=== PATIENT | male | born 1965 | race Caucasian/White ===

== ENCOUNTER 2019-06-28 07:41 | Day surgery (SDC) | payer BC ==
--- NOTE | 2019-04-16 09:56 | HP ---
DATE OF SURGERY: 04/19/2019 ADMISSION DIAGNOSIS: Follow up of positive colonoscopy with polyps. ANTICIPATED PROCEDURE: Colonoscopy for follow up of polyps. HISTORY OF PRESENT ILLNESS: The patient had a colonoscopy ten years ago with polyps, presents for colonoscopy. PAST MEDICAL HISTORY: ALLERGIES: KEFLEX. MEDICATIONS: Crestor, Kenalog. PAST SURGICAL HISTORY: Hernia surgery. SOCIAL HISTORY: Negative. FAMILY HISTORY: Negative. REVIEW OF SYSTEMS: Elevated cholesterol controlled. Hypertension, controlled. PULMONARY: Negative. GI: Negative. PHYSICAL EXAMINATION: VITAL SIGNS: Normal. CHEST: Clear. COR: Regular. ABDOMEN: Satisfactory. IMPRESSION/PLAN: Colonoscopy for follow up of polyps.
--- NOTE | 2019-06-26 14:29 | HP ---
DATE OF SURGERY: 06/28/2019 ANTICIPATED PROCEDURE: Colonoscopy. HISTORY OF PRESENT ILLNESS: A 54 year-old with history of diverticulitis. No colonoscopy. No family history. No bowel symptoms now. Apparently he has had polyps in the past. PAST MEDICAL HISTORY: ALLERGIES: KEFLEX. MEDICATIONS: Crestor, Atenolol. PAST SURGICAL HISTORY: Knee surgery. SOCIAL HISTORY: Negative. FAMILY HISTORY: Negative. REVIEW OF SYSTEMS: Heart trouble. Prostate. PHYSICAL EXAMINATION: VITAL SIGNS: Normal. CHEST: Clear. COR: Regular. ABDOMEN: Satisfactory. IMPRESSION: A 54 year-old with history of diverticulosis and polyps. PLAN: Colonoscopy.
[2019-06-28] MEDS ORDERED: Lactated Ringers 1,000 ML IV ONE (08:16)
[2019-06-28] MEDS ORDERED: Lactated Ringers 1,000 ML IV SCH (08:30)
[2019-06-28] MEDS ORDERED: DIPRIVAN 200 MG/20 ML IV ONE ×2 (10:07→10:22)
[2019-06-28 11:16] VITALS: BP 104/79; PULSE 52; O2SAT 99
--- NOTE | 2019-06-28 14:04 | OP ---
NOTE: This operative report was dictated and transcribed at [facility] on 06/28/2019. SURGERY DATE/TIME: 06/28/2019 1010 PREOPERATIVE DIAGNOSIS: Follow-up polyps. POSTOPERATIVE DIAGNOSES: 1) Mild diverticulosis, sigmoid. 2) Upper rectal polyp, 8 mm. PROCEDURE: Colonoscopy complete to cecum with hot polypectomy x1. SURGEON: Erik Landa M.D. ANESTHETIC: MAC. COMPLICATIONS: None. CONDITION: Stable. INDICATION FOR PROCEDURE: Patient requiring evaluation. She had 7 or 8 polyps in the past. DESCRIPTION OF PROCEDURE: He was taken to endoscopy, left lateral decubitus position. Scope introduced. Anorectal examination satisfactory. Scope advanced to the base of the cecum. An appendicolith was delivered from the appendix. The appendiceal orifice was normal. The cecum was normal. Ascending, hepatic, transverse, splenic, descending, sigmoid. Mild diverticulosis, sigmoid. Rectum, one 8 mm polyp taken with the hot biopsy forceps. Anus satisfactory. Scope removed. Follow-up 3 years. Findings discussed with the family in waiting room.
== END 2019-06-28 11:29 | disposition home or self-care (01) ==
LOC: SDC 07:41
PROVIDERS: ATTEND Surgery
DX: K57.30 Diverticulosis of large intestine without perforation or abscess without bleeding (principal); K62.1 Rectal polyp; Z86.010 Personal history of colon polyps; I10 Essential (primary) hypertension; E78.00 Pure hypercholesterolemia, unspecified
CPT/HCPCS: 88305; J2704

== ENCOUNTER 2023-04-19 17:53 | Emergency (ER) | payer BC ==
[2023-04-19 18:48] VITALS: TEMP 97.8
[2023-04-19] MEDS ORDERED: Sodium Chloride 0.9% 1000 ML 1,000 ML IV STA ×2 (19:00→20:42)
--- NOTE | 2023-04-19 19:04 | ERPHSYRPT ---
- History of Present Illness Time Seen by Provider: 04/19/23 18:30 Source: patient Exam Limitations: no limitations Patient Subjective Stated Complaint: pt states that he has had episodes of diarrhea. pt states he was on the toliet and passed out Triage Nursing Assessment: pt ambulated into the er; pt is axo x4; c/o diarrhea; pt denies N/V; pt denies abd pain; active bowel sounds in all quads; mucus membranes are pink and moist; no respiratory distress present; laceration 2 cm to left forehead; vital wnl; skin PDW Physician History: Patient is a 57-year-old male presents to our ED as a referral from his nurse practitioner. Patient states he has had significant diarrhea. Patient had a syncopal episode today while on the toilet. Patient hit his head. Patient refused a CT head. Patient agreed to getting his labs checked and hydration therapy. Patient currently asymptomatic. Patient denies headache. No nausea no vomiting no neck pain. Cervical spine cleared clinically. No associated chest pain or shortness of breath. Patient states he was sent to our ED for rehydration as he is on metformin and nurse practitioner was concerned with lactic acidosis. Significant other at bedside. They voiced no other complaints or concerns at this time. Portions of this note were created with voice recognition technology. There may be grammatical, spelling, punctuation or sound alike errors Timing/Duration: today Severity: moderate Modifying Factors: Improves With: nothing Associated Symptoms: denies symptoms Allergies/Adverse Reactions: cephalexin [From Keflex] Adverse Reaction (Intermediate, Verified 04/19/23 18:31) Hives Home Medications: Atenolol 50 mg [Tenormin 50 mg] 50 mg PO DAILY 04/06/19 [History] Rosuvastatin Calcium [Crestor] 10 mg PO DAILY 04/06/19 [History] Lisinopril 10 mg [Zestril 10 MG] 10 mg PO DAILY 04/19/23 [History] Metformin HCl 500 mg [Glucophage 500 MG] 1,000 mg PO DAILY 04/19/23 [History] Hx Tetanus, Diphtheria Vaccination/Date Given: Yes Hx Influenza Vaccination/Date Given: No Hx Pneumococcal Vaccination/Date Given: No Immunizations Up to Date: No Travel Risk - International Travel Have you traveled outside of the country in past 3 weeks: No - Coronavirus Screening Are you exhibiting any of the following symptoms?: Yes Symptoms: Vomiting/Diarrhea Close contact with a COVID-19 positive Pt in past 14-21 Days: No - Vaccine Status Have you recieved a Covid-19 vaccination: Yes 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: [employer] - Review of Systems Constitutional: No Symptoms, No Fever, No Chills Eyes: No Symptoms Ears, Nose, & Throat: No Symptoms Respiratory: No Symptoms, No Cough, No Dyspnea Cardiac: No Symptoms, No Chest Pain, No Edema, No Syncope Abdominal/Gastrointestinal: No Symptoms, No Abdominal Pain, No Nausea, No Vomiting, No Diarrhea Genitourinary Symptoms: No Symptoms, No Dysuria Musculoskeletal: No Symptoms, No Back Pain, No Neck Pain Skin: No Symptoms, No Rash Neurological: No Symptoms, No Dizziness, No Focal Weakness, No Sensory Changes Psychological: No Symptoms Endocrine: No Symptoms Hematologic/Lymphatic: No Symptoms Immunological/Allergic: No Symptoms All Other Systems: Reviewed and Negative - Past Medical History Pertinent Past Medical History: Yes Neurological History: No Pertinent History ENT History: No Pertinent History Cardiac History: High Cholesterol, Hypertension Respiratory History: No Pertinent History Endocrine Medical History: Diabetes Type II Musculoskeletal History: No Pertinent History GI Medical History: No Pertinent History History: No Pertinent History Psycho-Social History: No Pertinent History Male Reproductive Disorders: No Pertinent History - Past Surgical History Past Surgical History: Yes Neuro Surgical History: No Pertinent History Cardiac: No Pertinent History Respiratory: No Pertinent History Gastrointestinal: Hernia Repair Genitourinary: No Pertinent History Musculoskeletal: Orthopedic Surgery Male Surgical History: No Pertinent History Other Surgical History: hernia 2012, Fx ankle w/pinning 2003 - Social History Smoking Status: Never smoker Exposure to second hand smoke: No Drug Use: none Patient Lives Alone: No - Nursing Vital Signs Nursing Vital Signs: Initial Vital Signs Temperature 97.8 F 04/19/23 17:54 Pulse Rate 70 04/19/23 17:54 Respiratory Rate 18 04/19/23 17:54 Blood Pressure 118/70 04/19/23 17:54 O2 Sat by Pulse Oximetry 96 04/19/23 17:54 Pain Scale Pain Intensity 0 - Physical Exam General Appearance: no apparent distress, alert, other (Contusion to left forehead. Neurologic exam normal) Eye Exam: PERRL/EOMI, eyes nml inspection Ears, Nose, Throat Exam: normal ENT inspection, TMs normal, pharynx normal, moist mucous membranes Neck Exam: normal inspection, non-tender, supple, full range of motion Respiratory Exam: normal breath sounds, lungs clear, No respiratory distress Cardiovascular Exam: regular rate/rhythm, normal heart sounds, normal peripheral pulses Gastrointestinal/Abdomen Exam: soft, normal bowel sounds, No tenderness, No mass Back Exam: normal inspection, normal range of motion, No CVA tenderness, No vertebral tenderness Extremity Exam: normal inspection, normal range of motion, pelvis stable Neurologic Exam: alert, 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, cooperative, normal mood/affect, nml cerebellar function, nml station & gait, sensation nml, other (Patient observed ambulating from the restroom. Normal steady gait observed), No motor deficits Skin Exam: normal color, warm, dry, No rash Lymphatic Exam: No adenopathy SpO2 Interpretation: normal SpO2: 96 O2 Delivery: Room Air - Course Nursing assessment & vital signs reviewed: Yes EKG Interpreted by Me: RATE (65), Sinus Rhythm, Left Shelburn Deviation, NORMAL INTERVALS Ordered Tests: Active Orders 24 hr Category Date Time Status IV Insertion STAT Care 04/19/23 19:00 Active Pulse Oximetry (ED) STAT Care 04/19/23 19:00 Active BLOOD CULTURE Stat Lab 04/19/23 20:08 Received CBC W DIFF Stat Lab 04/19/23 18:30 Completed CBC W DIFF Stat Lab 04/19/23 22:10 Completed CMP Stat Lab 04/19/23 18:30 Completed CMP Stat Lab 04/19/23 22:10 Completed CULTURE,URINE Stat Lab 04/19/23 19:38 Received TROPONIN Q4H Lab 04/19/23 18:30 Completed TROPONIN Q4H Lab 04/19/23 22:10 Completed TROPONIN Q4H Lab 04/20/23 03:00 Ordered UA W/RFX UR CULTURE Stat Lab 04/19/23 19:38 Completed Medication Summary Discontinued Medications Generic Name Dose Route Start Last Admin Trade Name Freq PRN Reason Stop Dose Admin Sodium Chloride 1,000 mls @ 999 mls/hr 04/19/23 19:00 04/19/23 20:09 Sodium Chloride 0.9% 1000 Ml IV 04/19/23 20:00 Infused .Q1H1M STA Infusion Sodium Chloride Confirm 04/19/23 19:05 Sodium Chloride 0.9% 1000 Ml Administered 04/19/23 19:06 Dose 1,000 mls @ ud .ROUTE .STK-MED ONE Sodium Chloride 1,000 mls @ 999 mls/hr 04/19/23 20:42 04/19/23 21:56 Sodium Chloride 0.9% 1000 Ml IV 04/19/23 21:42 Infused .Q1H1M STA Infusion Sodium Chloride Confirm 04/19/23 20:42 Sodium Chloride 0.9% 1000 Ml Administered 04/19/23 20:43 Dose 1,000 mls @ ud .ROUTE .STK-MED ONE Lab/Rad Data: Laboratory Result Diagrams 04/19/23 22:10 04/19/23 22:10 Laboratory Results 04/19/23 04/19/23 04/19/23 Range/Units 22:10 22:10 22:10 WBC 16.5 H (4.0-10.5) x10^3/uL RBC 5.46 (4.1-5.6) x10^6/uL Hgb 16.6 (12.5-18.0) g/dL Hct 51.6 H (42-50) % MCV 94.5 (78-100) fL MCH 30.4 (26-32) pg MCHC 32.2 (32-36) g/dL RDW 13.3 (11.5-14.0) % Plt Count 338 (150-450) x10^3/uL MPV 9.6 (7.5-11.0) fL Gran % 72.3 H (36.0-66.0) % Immature Gran % (Auto) 0.7 H (0.00-0.4) % Nucleat RBC Rel Count 0.0 (0.00-0.1) % Eos # (Auto) 0.02 (0-0.5) x10^3/uL Immature Gran # (Auto) 0.11 H (0.00-0.03) x10^3u/L Absolute Lymphs (auto) 3.03 (1.0-4.6) x10^3/uL Absolute Monos (auto) 1.34 H (0.0-1.3) x10^3/uL Absolute Nucleated RBC 0.00 (0.00-0.01) x10^3u/L Lymphocytes % 18.4 L (24.0-44.0) % Monocytes % 8.1 (0.0-12.0) % Eosinophils % 0.1 (0.00-5.0) % Basophils % 0.4 (0.0-0.4) % Absolute Granulocytes 11.89 H (1.4-6.9) x10^3/uL Basophils # 0.06 (0-0.4) x10^3/uL Sodium 133 L (137-145) mmol/L Potassium 4.9 (3.5-5.1) mmol/L Chloride 102 (98-107) mmol/L Carbon Dioxide 19 L (22-30) mmol/L Anion Gap 16.8 H (5-15) MEQ/L BUN 20 (9-20) mg/dL Creatinine 1.39 H (0.66-1.25) mg/dL Estimated GFR 58.8 ML/MIN Glucose 121 H (74-106) mg/dL Calcium 8.3 L (8.4-10.2) mg/dL Total Bilirubin 1.20 (0.2-1.3) mg/dL AST 22 (17-59) U/L ALT 24 (0-50) U/L Alkaline Phosphatase 61 (38-126) U/L Troponin I < 0.012 (0.000-0.034) ng/mL Serum Total Protein 6.8 (6.3-8.2) g/dL Albumin 4.1 (3.5-5.0) g/dL Urine Color (Yellow) Urine Appearance (Clear) Urine pH (4.6-8.0) Ur Specific Kellogg (1.005-1.030) Urine Protein (Negative) Urine Glucose (UA) (Negative) mg/dL Urine Ketones (Negative) Urine Blood (Negative) Urine Nitrite (Negative) Urine Bilirubin (Negative) Urine Urobilinogen (0.2) mg/dL Ur Leukocyte Esterase (Negative) U Hyaline Cast (Auto) (0-2) /LPF Urine Microscopic RBC (0-5) /HPF Urine Microscopic WBC (0-5) /HPF Ur Epithelial Cells (None Seen) /HPF Urine Bacteria (None Seen) /HPF Urine Culture Reflexed (NO) Slides for Path Review 04/19/23 04/19/23 04/19/23 Range/Units 19:38 18:30 18:30 WBC 20.3 H (4.0-10.5) x10^3/uL RBC 5.96 H (4.1-5.6) x10^6/uL Hgb 18.2 H (12.5-18.0) g/dL Hct 54.5 H (42-50) % MCV 91.4 (78-100) fL MCH 30.5 (26-32) pg MCHC 33.4 (32-36) g/dL RDW 13.2 (11.5-14.0) % Plt Count 438 (150-450) x10^3/uL MPV 9.9 (7.5-11.0) fL Gran % 79.8 H (36.0-66.0) % Immature Gran % (Auto) 0.8 H (0.00-0.4) % Nucleat RBC Rel Count 0.0 (0.00-0.1) % Eos # (Auto) 0.01 (0-0.5) x10^3/uL Immature Gran # (Auto) 0.17 H (0.00-0.03) x10^3u/L Absolute Lymphs (auto) 1.96 (1.0-4.6) x10^3/uL Absolute Monos (auto) 1.91 H (0.0-1.3) x10^3/uL Absolute Nucleated RBC 0.00 (0.00-0.01) x10^3u/L Lymphocytes % 9.7 L (24.0-44.0) % Monocytes % 9.4 (0.0-12.0) % Eosinophils % 0.0 (0.00-5.0) % Basophils % 0.3 (0.0-0.4) % Absolute Granulocytes 16.17 H (1.4-6.9) x10^3/uL Basophils # 0.06 (0-0.4) x10^3/uL Sodium 135 L (137-145) mmol/L Potassium 4.7 (3.5-5.1) mmol/L Chloride 98 (98-107) mmol/L Carbon Dioxide 25 (22-30) mmol/L Anion Gap 16.6 H (5-15) MEQ/L BUN 20 (9-20) mg/dL Creatinine 1.65 H (0.66-1.25) mg/dL Estimated GFR 47.8 ML/MIN Glucose 159 H (74-106) mg/dL Calcium 9.3 (8.4-10.2) mg/dL Total Bilirubin 1.20 (0.2-1.3) mg/dL AST 29 (17-59) U/L ALT 27 (0-50) U/L Alkaline Phosphatase 69 (38-126) U/L Troponin I < 0.012 (0.000-0.034) ng/mL Serum Total Protein 7.8 (6.3-8.2) g/dL Albumin 4.6 (3.5-5.0) g/dL Urine Color Dark Yellow (Yellow) Urine Appearance Cloudy A (Clear) Urine pH 5.0 (4.6-8.0) Ur Specific Kellogg 1.020 (1.005-1.030) Urine Protein 300 A (Negative) Urine Glucose (UA) Negative (Negative) mg/dL Urine Ketones Trace A (Negative) Urine Blood Negative (Negative) Urine Nitrite Negative (Negative) Urine Bilirubin Small A (Negative) Urine Urobilinogen 1.0 A (0.2) mg/dL Ur Leukocyte Esterase Trace A (Negative) U Hyaline Cast (Auto) >50 A (0-2) /LPF Urine Microscopic RBC 0-2 (0-5) /HPF Urine Microscopic WBC 3-5 (0-5) /HPF Ur Epithelial Cells Few (None Seen) /HPF Urine Bacteria Few A (None Seen) /HPF Urine Culture Reflexed YES (NO) Slides for Path Review YES - Progress Progress: improved Progress Note: Patient declined CT head. Risks and benefits of CT head versus not obtaining CT head after head trauma were discussed. Patient decided to forego the CT head. 04/19/23 19:03 Patient is a 57-year-old male with a recent history of diarrhea presents to our ED with a syncopal episode. Patient has an injury to his left forehead. Patient refused CT head. Risk benefits of the CAT scan versus not obtaining a CAT scan discussed. In spite of risks patient does not want a CAT scan performed today. Patient denies headache or any complaints regarding his head and neck area. Troponin negative x 2. Patient's initial CBC CMP suggested of hemoconcentration. There was an increase increase in creatinine. Proteinuria observed in the urinalysis. Patient received 2 L of normal saline. CBC CMP repeated. There was significant improvement in his white count kidney function. Patient currently is asymptomatic. Patient requesting discharge. Patient understands that he may benefit from additional hydration however he states he will hydrate at home. He will follow-up with his primary care doctor within 48 hours for reevaluation. Patient voices no other complaints or concerns at this time. at bedside. Agree to plan of care. Portions of this note were created with voice recognition technology. There may be grammatical, spelling, punctuation or sound alike errors Complexity problem addressed is moderate, acute complicated No critical care time Complexity of data reviewed and analyzed is moderate. Test ordered test reviewed. Results analyzed and correlated clinically. Risk of complication and or risk of morbidity/mortality patient management is low Vital stable. Time spent to discharge patient is approximately 10 minutes. Plan of care established for shared decision making. No social determinants of health present impede follow-up. Portions of this note were created with voice recognition technology. There may be grammatical, spelling, punctuation or sound alike errors 04/19/23 23:30 Counseled pt/family regarding: lab results, diagnosis, need for follow-up - Departure Departure Disposition: Home Clinical Impression: Dehydration, Syncope and collapse, Head injury, Diarrhea, Proteinuria, Acute re nal injury, Forehead contusion Condition: Stable Critical Care Time: No Referrals: REMBERTO THOMAS NP [Primary Care Provider] - Follow up/PCP as directed Additional Instructions: Discharge/Care Plan YVETTE CHEN was seen on 04/19/23 in the Emergency Room. The patient was counseled regarding Diagnosis,Lab results, Imaging studies, need for follow up and when to return to the Emergency Room. Prescriptions given: Discharge Note I have spoken with the patient and/or caregivers. I have explained the patient's condition, diagnosis and treatment plan based on the information available to me at this time. I have answered the patient's and/or caregiver's questions and a ddressed any concerns. The patient and/or caregivers have as good understanding of the patient's diagnosis, condition and treatment plan as can be expected at this point. The vital signs have been stable. The patient's condition is stable and appropriate for discharge from the emergency department. The patient will pursue further outpatient evaluation with the primary care physician or other designated or consulting physician as outlined in the discharge instructions. The patient and/or caregivers are agreeable to this plan of care and follow-up instructions have been explained in detail. The patient and/or caregivers have received these instruction. The patient/and or caregivers are aware that any significant change in condition or worsening of symptoms should prompt an immediate return to this or the closest emergency department or call 911.
[2023-04-19 19:05] LABS: Absolute Neutrophil Ct (ANC) 16.17 x10^3/uL (1.4-6.9); BASOPHIL % 0.3 % (0.0-0.4); Basophil (Absolute #) 0.06 x10^3/uL (0-0.4); Eosinophil (Absolute #) 0.01 x10^3/uL (0-0.5); Hematocrit 54.5 % (42-50); Hemoglobin 18.2 g/dL (12.5-18.0); IMMATURE GRAN # 0.17 x10^3u/L (0.00-0.03); IMMATURE GRAN % 0.8 % (0.00-0.4); Lymphocyte (Absolute #) 1.96 x10^3/uL (1.0-4.6); Lymphocytes % 9.7 % (24.0-44.0); Mean Cell Volume 91.4 fL (78-100); Mean Corpuscular Hemoglobin 30.5 pg (26-32); Mean Corpuscular Hgb Concent. 33.4 g/dL (32-36); Mean Platelet Volume 9.9 fL (7.5-11.0); Monocyte (Absolute #) 1.91 x10^3/uL (0.0-1.3); Monocytes % 9.4 % (0.0-12.0); Neutrophil % 79.8 % (36.0-66.0); Platelet Count 438 x10^3/uL (150-450); Red Blood Count 5.96 x10^6/uL (4.1-5.6); Red Cell Distribution Width 13.2 % (11.5-14.0); White Blood Count 20.3 x10^3/uL (4.0-10.5)
[2023-04-19] MEDS ORDERED: Sodium Chloride 0.9% 1000 ML 1,000 ML ONE ×2 (19:05→20:42)
[2023-04-19 19:41] LABS: Slide Review 1 YES
[2023-04-19 19:56] LABS: Appearance Cloudy (Clear); Bilirubin Small (Negative); Blood Negative (Negative); Epithelial Cells Few /HPF (None Seen); Glucose, Urine Negative (Negative); Hyaline Casts >50 /LPF (0-2); Ketones Trace (Negative); Leukocyte Esterase Trace (Negative); Nitrite Negative (Negative); Protein,Urine Dip 300 (Negative)
[2023-04-19 20:04] LABS: Bacteria Few /HPF (None Seen); RBC 0-2 /HPF (0-5)
[2023-04-19 20:05] LABS: ADD URINE CULTURE? YES (NO)
[2023-04-19 20:10] LABS: ALBUMIN 4.6 g/dL (3.5-5.0); ALKALINE PHOSPHATASE 69 U/L (38-126); ANION GAP 16.6 MEQ/L (5-15); BLOOD UREA NITROGEN 20 mg/dL (9-20); CHLORIDE 98 mmol/L (98-107); Calcium 9.3 mg/dL (8.4-10.2); Carbon Dioxide 25 mmol/L (22-30); Creatinine 1 1.65 mg/dL (0.66-1.25); EST GLOMERULAR FILTRATION RATE 47.8 ML/MIN; Glucose 159 mg/dL (74-106); Potassium 4.7 mmol/L (3.5-5.1); SGOT/AST 29 U/L (17-59); SGPT/ALT 27 U/L (0-50); SODIUM 135 mmol/L (137-145); TROPONIN < 0.012 ng/mL (0.000-0.034); Total Protein 7.8 g/dL (6.3-8.2)
[2023-04-19 22:14] LABS: Absolute Neutrophil Ct (ANC) 11.89 x10^3/uL (1.4-6.9); BASOPHIL % 0.4 % (0.0-0.4); Basophil (Absolute #) 0.06 x10^3/uL (0-0.4); Eosinophil % 0.1 % (0.00-5.0); Eosinophil (Absolute #) 0.02 x10^3/uL (0-0.5); Hematocrit 51.6 % (42-50); Hemoglobin 16.6 g/dL (12.5-18.0); IMMATURE GRAN # 0.11 x10^3u/L (0.00-0.03); IMMATURE GRAN % 0.7 % (0.00-0.4); Lymphocyte (Absolute #) 3.03 x10^3/uL (1.0-4.6); Lymphocytes % 18.4 % (24.0-44.0); Mean Cell Volume 94.5 fL (78-100); Mean Corpuscular Hemoglobin 30.4 pg (26-32); Mean Corpuscular Hgb Concent. 32.2 g/dL (32-36); Mean Platelet Volume 9.6 fL (7.5-11.0); Monocyte (Absolute #) 1.34 x10^3/uL (0.0-1.3); Monocytes % 8.1 % (0.0-12.0); Neutrophil % 72.3 % (36.0-66.0); Platelet Count 338 x10^3/uL (150-450); Red Blood Count 5.46 x10^6/uL (4.1-5.6); Red Cell Distribution Width 13.3 % (11.5-14.0); White Blood Count 16.5 x10^3/uL (4.0-10.5)
[2023-04-19 22:30] LABS: ALBUMIN 4.1 g/dL (3.5-5.0); ANION GAP 16.8 MEQ/L (5-15); BILIRUBIN,TOTAL 1.2 mg/dL (0.2-1.3); Calcium 8.3 mg/dL (8.4-10.2); Creatinine 1 1.39 mg/dL (0.66-1.25); EST GLOMERULAR FILTRATION RATE 58.8 ML/MIN; Potassium 4.9 mmol/L (3.5-5.1); Total Protein 6.8 g/dL (6.3-8.2)
[2023-04-20 00:02] VITALS: BP 107/65; PULSE 66; RESP 20
[2023-04-20 00:03] VITALS: O2SAT 96
== END 2023-04-20 00:15 | disposition home or self-care (01) ==
LOC: ED 17:53
DX: E86.0 Dehydration (principal); R55 Syncope and collapse; S09.90XA Unspecified injury of head, initial encounter; S00.83XA Contusion of other part of head, initial encounter; W18.11XA Fall from or off toilet without subsequent striking against object, initial encounter; Y92.002 Bathroom of unspecified non-institutional (private) residence as the place of occurrence of the external cause; R19.7 Diarrhea, unspecified; R80.9 Proteinuria, unspecified; N17.9 Acute kidney failure, unspecified; E78.5 Hyperlipidemia, unspecified; I10 Essential (primary) hypertension; E11.9 Type 2 diabetes mellitus without complications; Z79.84 Long term (current) use of oral hypoglycemic drugs; Z79.899 Other long term (current) drug therapy
CPT/HCPCS: 36000; 36415; 80053; 81001; 84484; 85025; 87040; 87086; 94760; 96360; 96361; 99284

== ENCOUNTER 2023-05-12 16:39 | Observation (INO) | payer BC ==
--- NOTE | 2023-05-12 16:43 | ERPHSYRPT ---
- History of Present Illness Source: patient, family Exam Limitations: no limitations Timing/Duration: yesterday Severity: mild Character of Deficits: none (Moderate) Deficits: no difficulties Baseline/Normal Cognition: alert 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 Current Cognition: alert 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 Baseline Gait: walks w/o assistance Associated Symptoms: other (Lightheadedness and dizziness) Hx Tetanus, Diphtheria Vaccination/Date Given: Yes Hx Influenza Vaccination/Date Given: No Hx Pneumococcal Vaccination/Date Given: No <MELODY COMBS - Last Filed: 05/12/23 19:27> <QUIANA MENDOZA - Last Filed: 05/12/23 20:55> - History of Present Illness Time Seen by Provider: 05/12/23 16:43 Physician History: This is an overweight 57-year-old white male patient who has a history of hypertension and hyperlipidemia. He was recently taken off his lisinopril secondary to coughing. The coughing symptoms have nearly completely resolved after discontinuing lisinopril. Patient began having some dizziness yesterday and his dizziness and lightheadedness was worse today. He was able to work but he thought he should be evaluated. Patient denies chest pain. He has no abdominal pain. He has not had fevers or chills. He has no nausea vomiting or diarrhea symptoms. He is not short of breath. (MELODY COMBS) Allergies/Adverse Reactions: cephalexin [From Keflex] Adverse Reaction (Intermediate, Verified 04/19/23 18:31) Hives Home Medications: Atenolol 50 mg [Tenormin 50 mg] 50 mg PO DAILY 04/06/19 [History] Rosuvastatin Calcium [Crestor] 10 mg PO DAILY 04/06/19 [History] Metformin HCl 500 mg [Glucophage 500 MG] 1,000 mg PO DAILY 04/19/23 [History] Travel Risk - International Travel Have you traveled outside of the country in past 3 weeks: No - Coronavirus Screening Are you exhibiting any of the following symptoms?: No Close contact with a COVID-19 positive Pt in past 14-21 Days: No - Vaccine Status Have you recieved a Covid-19 vaccination: Yes 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 Patient's said he has been "off" a bit) Endocrine: No Symptoms Hematologic/Lymphatic: No Symptoms Immunological/Allergic: No Symptoms All Other Systems: Reviewed and Negative <MELODY COMBS - Last Filed: 05/12/23 19:27> - Past Medical History Pertinent Past Medical History: Yes Neurological History: No Pertinent History ENT History: No Pertinent History Cardiac History: High Cholesterol, Hypertension Respiratory History: No Pertinent History Endocrine Medical History: Diabetes Type II Musculoskeletal History: No Pertinent History GI Medical History: No Pertinent History History: No Pertinent History Psycho-Social History: No Pertinent History Male Reproductive Disorders: No Pertinent History - Past Surgical History Past Surgical History: Yes Neuro Surgical History: No Pertinent History Cardiac: No Pertinent History Respiratory: No Pertinent History Gastrointestinal: Hernia Repair Genitourinary: No Pertinent History Musculoskeletal: Orthopedic Surgery Male Surgical History: No Pertinent History Other Surgical History: hernia 2011, Fx ankle w/pinning 2003 - Social History Smoking Status: Never smoker Exposure to second hand smoke: No Drug Use: none Patient Lives Alone: No <MELODY COMBS - Last Filed: 05/12/23 19:27> - Inocencio Coma Scale Best Eye Response ([place]): (4) open spontaneously Best Verbal Response ([place]): (5) oriented Best Motor Response ([place]): (6) obeys commands Inocencio Total: 15 - Physical Exam General Appearance: no apparent distress, alert, anxiety, obese Eye Exam: bilateral eye: normal inspection, PERRL, EOMI Ears, Nose, Throat Exam: normal ENT inspection, moist mucous membranes Neck Exam: normal inspection, non-tender, supple, full range of motion Respiratory: normal breath sounds, lungs clear, airway intact, No chest tenderness, No respiratory distress Cardiovascular: regular rate/rhythm, normal heart sounds, normal peripheral pulses Gastrointestinal: soft, normal bowel sounds, No tenderness Rectal Exam: not done Back Exam: normal inspection, normal range of motion, No CVA tenderness, No vertebral tenderness Extremity Exam: normal inspection, normal range of motion, pelvis stable Mental Status: alert, 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, 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 Exam: normal hearing, normal speech, PERRL Coordination/Gait: normal finger to nose, normal gait, normal cerebellar function Motor/Sensory: no motor deficit, no sensory deficit, no pronator drift Skin Exam: normal color, warm, dry SpO2 Interpretation: normal O2 Delivery: Room Air <MELODY COMBS - Last Filed: 05/12/23 19:27> - Nursing Vital Signs Nursing Vital Signs: Initial Vital Signs Pulse Rate 59 L 05/12/23 16:47 Respiratory Rate 16 05/12/23 16:47 Blood Pressure 168/90 05/12/23 16:47 O2 Sat by Pulse Oximetry 98 05/12/23 16:47 Pain Scale Pain Intensity 0 - Course Nursing assessment & vital signs reviewed: Yes EKG Interpreted by Me: RATE (59), Sinus Rhythm, Left [place] Deviation, NORMAL INTERVALS, NORMAL QRS, NORMAL ST-T (Borderline), Other (No acute ischemic changes on today's twelve-lead EKG) <MELODY COMBS - Last Filed: 05/12/23 19:27> - CT Exams Head CT Interpretation: Tele-radiologist Report (No comps small symmetric bilateral basal ganglia lacunar infarcts versus normal virtual Clarke spaces otherwise normal head) <QUIANA MENDOZA - Last Filed: 05/12/23 20:55> Ordered Tests: Active Orders 24 hr Category Date Time Status EKG-ER Only STAT Care 05/12/23 17:27 Active IV Insertion STAT Care 05/12/23 17:27 Active HEAD WITHOUT CONTRAST [CT] Stat Exams 05/12/23 17:27 Taken CBC W DIFF Stat Lab 05/12/23 18:05 Completed CMP Stat Lab 05/12/23 18:05 Completed ETHYL ALCOHOL Stat Lab 05/12/23 18:05 Completed MONO SCREEN Stat Lab 05/12/23 18:05 Completed TROPONIN Q4H Lab 05/12/23 18:05 Completed TROPONIN Q4H Lab 05/12/23 21:30 Ordered UA W/RFX UR CULTURE Stat Lab 05/12/23 17:10 Completed Medication Summary Discontinued Medications Generic Name Dose Route Start Last Admin Trade Name Freq PRN Reason Stop Dose Admin Sodium Chloride 1,000 mls @ 999 mls/hr 05/12/23 18:05 05/12/23 19:46 Sodium Chloride 0.9% 1000 Ml IV 05/12/23 19:05 Infused .Q1H1M STA Infusion Sodium Chloride Confirm 05/12/23 18:15 Sodium Chloride 0.9% 1000 Ml Administered 05/12/23 18:16 Dose 1,000 mls @ ud .ROUTE .K-MED ONE Lab/Rad Data: Laboratory Result Diagrams 05/12/23 18:05 05/12/23 18:05 Laboratory Results 05/12/23 05/12/23 05/12/23 Range/Units 18:05 18:05 18:05 WBC (4.0-10.5) x10^3/uL RBC (4.1-5.6) x10^6/uL Hgb (12.5-18.0) g/dL Hct (42-50) % MCV (78-100) fL MCH (26-32) pg MCHC (32-36) g/dL RDW (11.5-14.0) % Plt Count (150-450) x10^3/uL MPV (7.5-11.0) fL Gran % (36.0-66.0) % Immature Gran % (Auto) (0.00-0.4) % Nucleat RBC Rel Count (0.00-0.1) % Eos # (Auto) (0-0.5) x10^3/uL Immature Gran # (Auto) (0.00-0.03) x10^3u/L Absolute Lymphs (auto) (1.0-4.6) x10^3/uL Absolute Monos (auto) (0.0-1.3) x10^3/uL Absolute Nucleated RBC (0.00-0.01) x10^3u/L Lymphocytes % (24.0-44.0) % Monocytes % (0.0-12.0) % Eosinophils % (0.00-5.0) % Basophils % (0.0-0.4) % Absolute Granulocytes (1.4-6.9) x10^3/uL Basophils # (0-0.4) x10^3/uL Sodium 138 (137-145) mmol/L Potassium 3.8 (3.5-5.1) mmol/L Chloride 103 (98-107) mmol/L Carbon Dioxide 27 (22-30) mmol/L Anion Gap 11.7 (5-15) MEQ/L BUN 12 (9-20) mg/dL Creatinine 1.01 (0.66-1.25) mg/dL Estimated GFR 86.2 ML/MIN Glucose 146 H (74-106) mg/dL Calcium 9.6 (8.4-10.2) mg/dL Total Bilirubin 0.70 (0.2-1.3) mg/dL AST 27 (17-59) U/L ALT 27 (0-50) U/L Alkaline Phosphatase 62 (38-126) U/L Troponin I < 0.012 (0.000-0.034) ng/mL Serum Total Protein 7.6 (6.3-8.2) g/dL Albumin 4.6 (3.5-5.0) g/dL Urine Color (Yellow) Urine Appearance (Clear) Urine pH (4.6-8.0) Ur Specific [place] (1.005-1.030) Urine Protein (Negative) Urine Glucose (UA) (Negative) mg/dL Urine Ketones (Negative) Urine Blood (Negative) Urine Nitrite (Negative) Urine Bilirubin (Negative) Urine Urobilinogen (0.2) mg/dL Ur Leukocyte Esterase (Negative) U Hyaline Cast (Auto) (0-2) /LPF Urine Microscopic RBC (0-5) /HPF Urine Microscopic WBC (0-5) /HPF Ur Epithelial Cells (None Seen) /HPF Urine Bacteria (None Seen) /HPF Urine Culture Reflexed (NO) Ethyl Alcohol < 10 (0-10) mg/dL Monoscreen NEGATIVE (NEGATIVE) Influenza Type A Ag (NEGATIVE) Influenza Type B Ag (NEGATIVE) RSV (PCR) (NEGATIVE) SARS-CoV-2 (PCR) (NEGATIVE) 05/12/23 05/12/23 05/12/23 Range/Units 18:05 18:00 17:10 WBC 9.3 (4.0-10.5) x10^3/uL RBC 5.09 (4.1-5.6) x10^6/uL Hgb 15.6 (12.5-18.0) g/dL Hct 44.9 (42-50) % MCV 88.2 (78-100) fL MCH 30.6 (26-32) pg MCHC 34.7 (32-36) g/dL RDW 13.0 (11.5-14.0) % Plt Count 254 (150-450) x10^3/uL MPV 9.8 (7.5-11.0) fL Gran % 67.8 H (36.0-66.0) % Immature Gran % (Auto) 0.2 (0.00-0.4) % Nucleat RBC Rel Count 0.0 (0.00-0.1) % Eos # (Auto) 0.09 (0-0.5) x10^3/uL Immature Gran # (Auto) 0.02 (0.00-0.03) x10^3u/L Absolute Lymphs (auto) 2.08 (1.0-4.6) x10^3/uL Absolute Monos (auto) 0.77 (0.0-1.3) x10^3/uL Absolute Nucleated RBC 0.00 (0.00-0.01) x10^3u/L Lymphocytes % 22.4 L (24.0-44.0) % Monocytes % 8.3 (0.0-12.0) % Eosinophils % 1.0 (0.00-5.0) % Basophils % 0.3 (0.0-0.4) % Absolute Granulocytes 6.31 (1.4-6.9) x10^3/uL Basophils # 0.03 (0-0.4) x10^3/uL Sodium (137-145) mmol/L Potassium (3.5-5.1) mmol/L Chloride (98-107) mmol/L Carbon Dioxide (22-30) mmol/L Anion Gap (5-15) MEQ/L BUN (9-20) mg/dL Creatinine (0.66-1.25) mg/dL Estimated GFR ML/MIN Glucose (74-106) mg/dL Calcium (8.4-10.2) mg/dL Total Bilirubin (0.2-1.3) mg/dL AST (17-59) U/L ALT (0-50) U/L Alkaline Phosphatase (38-126) U/L Troponin I (0.000-0.034) ng/mL Serum Total Protein (6.3-8.2) g/dL Albumin (3.5-5.0) g/dL Urine Color Yellow (Yellow) Urine Appearance Clear (Clear) Urine pH 6.5 (4.6-8.0) Ur Specific [place] <=1.005 (1.005-1.030) Urine Protein Negative (Negative) Urine Glucose (UA) Negative (Negative) mg/dL Urine Ketones Negative (Negative) Urine Blood Negative (Negative) Urine Nitrite Negative (Negative) Urine Bilirubin Negative (Negative) Urine Urobilinogen 0.2 (0.2) mg/dL Ur Leukocyte Esterase Negative (Negative) U Hyaline Cast (Auto) NONE SEEN (0-2) /LPF Urine Microscopic RBC 0-2 (0-5) /HPF Urine Microscopic WBC 0-2 (0-5) /HPF Ur Epithelial Cells None Seen (None Seen) /HPF Urine Bacteria None Seen (None Seen) /HPF Urine Culture Reflexed NO (NO) Ethyl Alcohol (0-10) mg/dL Monoscreen (NEGATIVE) Influenza Type A Ag NEGATIVE (NEGATIVE) Influenza Type B Ag NEGATIVE (NEGATIVE) RSV (PCR) NEGATIVE (NEGATIVE) SARS-CoV-2 (PCR) NEGATIVE (NEGATIVE) - Progress Progress: improved, re-examined <MELODY COMBS - Last Filed: 05/12/23 19:27> - Progress Discussed with : Desirae Counseled pt/family regarding: lab results, diagnosis, rad results <QUIANA MENDOZA - Last Filed: 05/12/23 20:55> - Progress Progress Note: 05/12/23 18:35 This patient's medical issue is 1 of moderate complexity. Level complex in the workup performed is based on review of the patient's past medical history, review of the patient's medication list, review of the Drug allergy list, history present illness and physical findings on examination. The workup in this patient includes placement of intravenous line, infusion of normal saline solution, twelve-lead EKG, troponin level, CBC, CMP, urinalysis, alcohol level, CT scan of the head, viral swabs and monotest. 05/12/23 19:27 CT scan of the head without contrast was interpreted by the radiologist and I reviewed the impression. There were no comparison films available. There are small symmetric bilateral basal ganglia lacunar infarcts versus normal virtual Clarke spaces. Otherwise normal head CT without contrast. I reviewed the results with Dr. Mendoza and with the patient and his spouse. I am transferring care of the patient to Dr. Mendoza at shift change. He will make final disposition. (MELODY COMBS) Case discussed with at 8:46 PM. Patient accepted to observation for further evaluation and treatment/MRI as per neurologist recommendations. 05/12/23 20:51 Plan of care discussed with patient. Patient agreed to admission to [facility] for further evaluation and treatment. Portions of this note were created with voice recognition technology. There may be grammatical, spelling, punctuation or sound alike errors 05/12/23 20:54 (QUIANA MENDOZA) - Departure Departure Disposition: In-patient Admission Critical Care Time: No <MELODY COMBS - Last Filed: 05/12/23 19:27> <QUIANA MENDOZA - Last Filed: 05/12/23 20:55> - Departure Clinical Impression: Dizziness Condition: Stable Referrals: REMBERTO THOMAS, [employer] [Primary Care Provider] - Follow up/PCP as directed
[2023-05-12 18:02] LABS: Appearance Clear (Clear); Bacteria None Seen /HPF (None Seen); Bilirubin Negative (Negative); Blood Negative (Negative); Epithelial Cells None Seen /HPF (None Seen); Glucose, Urine Negative (Negative); Hyaline Casts NONE SEEN /LPF (0-2); Ketones Negative (Negative); Leukocyte Esterase Negative (Negative); Nitrite Negative (Negative); Ph 6.5 (4.6-8.0); Protein,Urine Dip Negative (Negative); RBC 0-2 /HPF (0-5); Specific Gravity <=1.005 (1.005-1.030); Urobilinogen 0.2 mg/dL (0.2); WBC 0-2 /HPF (0-5)
[2023-05-12 18:03] LABS: ADD URINE CULTURE? NO (NO)
[2023-05-12] MEDS ORDERED: Sodium Chloride 0.9% 1000 ML 1,000 ML IV STA (18:05)
[2023-05-12] MEDS ORDERED: Sodium Chloride 0.9% 1000 ML 1,000 ML ONE (18:15)
[2023-05-12 18:19] LABS: Absolute Neutrophil Ct (ANC) 6.31 x10^3/uL (1.4-6.9); BASOPHIL % 0.3 % (0.0-0.4); Basophil (Absolute #) 0.03 x10^3/uL (0-0.4); Eosinophil (Absolute #) 0.09 x10^3/uL (0-0.5); Hematocrit 44.9 % (42-50); Hemoglobin 15.6 g/dL (12.5-18.0); IMMATURE GRAN # 0.02 x10^3u/L (0.00-0.03); IMMATURE GRAN % 0.2 % (0.00-0.4); Lymphocyte (Absolute #) 2.08 x10^3/uL (1.0-4.6); Lymphocytes % 22.4 % (24.0-44.0); Mean Cell Volume 88.2 fL (78-100); Mean Corpuscular Hemoglobin 30.6 pg (26-32); Mean Corpuscular Hgb Concent. 34.7 g/dL (32-36); Mean Platelet Volume 9.8 fL (7.5-11.0); Monocyte (Absolute #) 0.77 x10^3/uL (0.0-1.3); Monocytes % 8.3 % (0.0-12.0); Neutrophil % 67.8 % (36.0-66.0); Platelet Count 254 x10^3/uL (150-450); Red Blood Count 5.09 x10^6/uL (4.1-5.6); White Blood Count 9.3 x10^3/uL (4.0-10.5)
[2023-05-12 18:34] LABS: ALBUMIN 4.6 g/dL (3.5-5.0); ALKALINE PHOSPHATASE 62 U/L (38-126); ANION GAP 11.7 MEQ/L (5-15); BLOOD UREA NITROGEN 12 mg/dL (9-20); CHLORIDE 103 mmol/L (98-107); Calcium 9.6 mg/dL (8.4-10.2); Carbon Dioxide 27 mmol/L (22-30); Creatinine 1 1.01 mg/dL (0.66-1.25); EST GLOMERULAR FILTRATION RATE 86.2 ML/MIN; ETHYL ALCOHOL < 10 mg/dL (0-10); Glucose 146 mg/dL (74-106); Potassium 3.8 mmol/L (3.5-5.1); SGOT/AST 27 U/L (17-59); SGPT/ALT 27 U/L (0-50); SODIUM 138 mmol/L (137-145); Total Protein 7.6 g/dL (6.3-8.2)
[2023-05-12 18:52] LABS: INFLUENZA A NEGATIVE (NEGATIVE); INFLUENZA B NEGATIVE (NEGATIVE); RESPIRATORY SYNCTIAL VIRUS NEGATIVE (NEGATIVE); SARS-CoV-2 Xpert Express NEGATIVE (NEGATIVE)
[2023-05-12] MEDS ORDERED: BABY ASPIRIN 81 MG CHEW PO ONE (20:52)
[2023-05-12] MEDS ORDERED: BABY ASPIRIN 81 MG CHEW ONE (20:56)
[2023-05-12] MEDS ORDERED: HUMALOG SQ PRN (21:25)
[2023-05-12] MEDS ORDERED: TYLENOL 325 MG PO PRN (21:25)
--- NOTE | 2023-05-12 21:31 | PCM.HP ---
History of Present Illness - Chief Complaint Chief Complaint: Weakness, abnormal CT head History of Present Illness: is a 57 year old male with hx of DMII, HTN, HLP and is here with c/o dizziness and lightheadedness since yesterday. thought he was a bit "off" as well. 2 weeks ago, he had a 3 days "flu like" symptoms - nausea, vomiting, diarrhea, poor intake. He went to ER and was told he was dehydrated, IVF given. They wanted to do a CT head then, but he refused. He gotten over this episode and has been doing fine in term of intake. Has been fine until yesterday Denies vision change, hearing loss, focal weakness, paralysis, speech problem. Denies seizure, syncope. No headache. Denies chest pain, palpitation, SOB, edema - Review of Systems Constitutional: No Symptoms Eyes: No Symptoms Ears, Nose, & Throat: No Symptoms Respiratory: No Symptoms Cardiac: No Symptoms Abdominal/Gastrointestinal: No Symptoms Genitourinary Symptoms: No Symptoms Musculoskeletal: No Symptoms Skin: No Symptoms Neurological: Dizziness Psychological: No Symptoms Endocrine: No Symptoms Hematologic/Lymphatic: No Symptoms Immunological/Allergic: No Symptoms Medications & Allergies Home Medications: Home Medication List Atenolol 50 mg [Tenormin 50 mg] 50 mg PO DAILY 04/06/19 [History Confirmed 05/12/23] Rosuvastatin Calcium [Crestor] 10 mg PO DAILY 04/06/19 [History Confirmed 05/12/23] Aspirin 81 mg PO DAILY #0 06/28/19 [Rx Confirmed 05/12/23] Metformin HCl 500 mg [Glucophage 500 MG] 1,000 mg PO DAILY 04/19/23 [History Confirmed 05/12/23] Allergies/Adverse Reactions: Allergies Allergy/AdvReac Type Severity Reaction Status Date / Time cephalexin [From Keflex] AdvReac Intermediate Hives Verified 04/19/23 18:31 - Past Medical History Past Medical History: Yes Neurological History: No Pertinent History ENT History: No Pertinent History Cardiac History: High Cholesterol, Hypertension Respiratory History: No Pertinent History Endocrine Medical History: Diabetes Type II Musculoskelatal History: No Pertinent History GI Medical History: No Pertinent History History: No Pertinent History Pyscho-Social History: No Pertinent History Male Reproductive Disorders: No Pertinent History - Past Surgical History Past Surgical History: Yes Neuro Surgical History: No Pertinent History Cardiac History: No Pertinent History Respiratory Surgery: No Pertinent History GI Surgical History: Hernia Repair Genitourinary Surgical Hx: No Pertinent History Musculskeletal Surgical Hx: Orthopedic Surgery Male Surgical History: No Pertinent History Other Surgical History: hernia 2012, Fx ankle w/pinning 2003 - Social History Smoking Status: Never smoker Exposure to second hand smoke: No Alcohol: None Drug Use: none Significant Family History: no pertinent family hx - Physical Exam Vital Signs: Vital Signs - 24 hr Pulse Resp BP BP Pulse Ox 05/12/23 21:00 59 L 19 137/83 97 05/12/23 20:34 55 L 12 162/80 05/12/23 20:30 59 L 14 187/112 92 L 05/12/23 20:00 61 21 159/81 94 L 05/12/23 19:30 54 L 14 143/66 93 L 05/12/23 19:00 53 L 18 156/85 93 L 05/12/23 18:30 56 L 18 150/81 94 L 05/12/23 17:30 57 L 14 128/78 93 L 05/12/23 17:00 61 15 159/84 97 05/12/23 16:47 59 L 16 168/90 98 General Appearance: no apparent distress Neurologic Exam: alert, 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, cooperative, normal mood/affect Eye Exam: PERRL/EOMI, eyes nml inspection Ears, Nose, Throat Exam: normal ENT inspection Neck Exam: normal inspection, supple, full range of motion Respiratory Exam: normal breath sounds, lungs clear Cardiovascular Exam: regular rate/rhythm, normal heart sounds Gastrointestinal/Abdomen Exam: soft, normal bowel sounds Rectal Exam: deferred Back Exam: normal inspection, normal range of motion Extremity Exam: normal inspection, normal range of motion Skin Exam: normal color, warm, dry Results - Labs Lab/Micro Results: Lab Results-Last 24 Hours 05/12/23 05/12/23 05/12/23 Range/Units 17:10 18:00 18:05 WBC 9.3 (4.0-10.5) x10^3/uL RBC 5.09 (4.1-5.6) x10^6/uL Hgb 15.6 (12.5-18.0) g/dL Hct 44.9 (42-50) % MCV 88.2 (78-100) fL MCH 30.6 (26-32) pg MCHC 34.7 (32-36) g/dL RDW 13.0 (11.5-14.0) % Plt Count 254 (150-450) x10^3/uL MPV 9.8 (7.5-11.0) fL Gran % 67.8 H (36.0-66.0) % Immature Gran % (Auto) 0.2 (0.00-0.4) % Nucleat RBC Rel Count 0.0 (0.00-0.1) % Eos # (Auto) 0.09 (0-0.5) x10^3/uL Immature Gran # (Auto) 0.02 (0.00-0.03) x10^3u/L Absolute Lymphs (auto) 2.08 (1.0-4.6) x10^3/uL Absolute Monos (auto) 0.77 (0.0-1.3) x10^3/uL Absolute Nucleated RBC 0.00 (0.00-0.01) x10^3u/L Lymphocytes % 22.4 L (24.0-44.0) % Monocytes % 8.3 (0.0-12.0) % Eosinophils % 1.0 (0.00-5.0) % Basophils % 0.3 (0.0-0.4) % Absolute Granulocytes 6.31 (1.4-6.9) x10^3/uL Basophils # 0.03 (0-0.4) x10^3/uL Sodium (137-145) mmol/L Potassium (3.5-5.1) mmol/L Chloride (98-107) mmol/L Carbon Dioxide (22-30) mmol/L Anion Gap (5-15) MEQ/L BUN (9-20) mg/dL Creatinine (0.66-1.25) mg/dL Estimated GFR ML/MIN Glucose (74-106) mg/dL Calcium (8.4-10.2) mg/dL Total Bilirubin (0.2-1.3) mg/dL AST (17-59) U/L ALT (0-50) U/L Alkaline Phosphatase (38-126) U/L Troponin I (0.000-0.034) ng/mL Serum Total Protein (6.3-8.2) g/dL Albumin (3.5-5.0) g/dL Urine Color Yellow (Yellow) Urine Appearance Clear (Clear) Urine pH 6.5 (4.6-8.0) Ur Specific [place] <=1.005 (1.005-1.030) Urine Protein Negative (Negative) Urine Glucose (UA) Negative (Negative) mg/dL Urine Ketones Negative (Negative) Urine Blood Negative (Negative) Urine Nitrite Negative (Negative) Urine Bilirubin Negative (Negative) Urine Urobilinogen 0.2 (0.2) mg/dL Ur Leukocyte Esterase Negative (Negative) U Hyaline Cast (Auto) NONE SEEN (0-2) /LPF Urine Microscopic RBC 0-2 (0-5) /HPF Urine Microscopic WBC 0-2 (0-5) /HPF Ur Epithelial Cells None Seen (None Seen) /HPF Urine Bacteria None Seen (None Seen) /HPF Urine Culture Reflexed NO (NO) Ethyl Alcohol (0-10) mg/dL Monoscreen (NEGATIVE) Influenza Type A Ag NEGATIVE (NEGATIVE) Influenza Type B Ag NEGATIVE (NEGATIVE) RSV (PCR) NEGATIVE (NEGATIVE) SARS-CoV-2 (PCR) NEGATIVE (NEGATIVE) 05/12/23 05/12/23 05/12/23 Range/Units 18:05 18:05 18:05 WBC (4.0-10.5) x10^3/uL RBC (4.1-5.6) x10^6/uL Hgb (12.5-18.0) g/dL Hct (42-50) % MCV (78-100) fL MCH (26-32) pg MCHC (32-36) g/dL RDW (11.5-14.0) % Plt Count (150-450) x10^3/uL MPV (7.5-11.0) fL Gran % (36.0-66.0) % Immature Gran % (Auto) (0.00-0.4) % Nucleat RBC Rel Count (0.00-0.1) % Eos # (Auto) (0-0.5) x10^3/uL Immature Gran # (Auto) (0.00-0.03) x10^3u/L Absolute Lymphs (auto) (1.0-4.6) x10^3/uL Absolute Monos (auto) (0.0-1.3) x10^3/uL Absolute Nucleated RBC (0.00-0.01) x10^3u/L Lymphocytes % (24.0-44.0) % Monocytes % (0.0-12.0) % Eosinophils % (0.00-5.0) % Basophils % (0.0-0.4) % Absolute Granulocytes (1.4-6.9) x10^3/uL Basophils # (0-0.4) x10^3/uL Sodium 138 (137-145) mmol/L Potassium 3.8 (3.5-5.1) mmol/L Chloride 103 (98-107) mmol/L Carbon Dioxide 27 (22-30) mmol/L Anion Gap 11.7 (5-15) MEQ/L BUN 12 (9-20) mg/dL Creatinine 1.01 (0.66-1.25) mg/dL Estimated GFR 86.2 ML/MIN Glucose 146 H (74-106) mg/dL Calcium 9.6 (8.4-10.2) mg/dL Total Bilirubin 0.70 (0.2-1.3) mg/dL AST 27 (17-59) U/L ALT 27 (0-50) U/L Alkaline Phosphatase 62 (38-126) U/L Troponin I < 0.012 (0.000-0.034) ng/mL Serum Total Protein 7.6 (6.3-8.2) g/dL Albumin 4.6 (3.5-5.0) g/dL Urine Color (Yellow) Urine Appearance (Clear) Urine pH (4.6-8.0) Ur Specific [place] (1.005-1.030) Urine Protein (Negative) Urine Glucose (UA) (Negative) mg/dL Urine Ketones (Negative) Urine Blood (Negative) Urine Nitrite (Negative) Urine Bilirubin (Negative) Urine Urobilinogen (0.2) mg/dL Ur Leukocyte Esterase (Negative) U Hyaline Cast (Auto) (0-2) /LPF Urine Microscopic RBC (0-5) /HPF Urine Microscopic WBC (0-5) /HPF Ur Epithelial Cells (None Seen) /HPF Urine Bacteria (None Seen) /HPF Urine Culture Reflexed (NO) Ethyl Alcohol < 10 (0-10) mg/dL Monoscreen NEGATIVE (NEGATIVE) Influenza Type A Ag (NEGATIVE) Influenza Type B Ag (NEGATIVE) RSV (PCR) (NEGATIVE) SARS-CoV-2 (PCR) (NEGATIVE) - Radiology Impressions Radiology Exams & Impressions: Radiology Procedures Category Date Time Status HEAD WITHOUT CONTRAST [CT] Stat Exams 05/12/23 17:27 Taken Assessment/Plan (1) Dizziness Current Visit: Yes Status: Acute Assessment & Plan: CT head showing posterior infarct vs artifact. Neurology consulted. They want MRI of brain tomorrow. He has no acute neurological issue at this time besides the dizziness and lightheadedness. No deficit in facial symmetry nor speech, nor comprehension. No tremor Continue ASA 23 hrs obs Full code Lovenox for DVT prophylaxis Code(s): R42 - DIZZINESS AND GIDDINESS (2) Essential (primary) hypertension Current Visit: Yes Status: Acute Assessment & Plan: BP is uncontrolled. Lisinopril was stopped last weak due to a dry cough. he did this on his own. Has not gotten back to his PCP yet. On Atenolol. I will add Losartan 25mg daily today, and prn hydralazine for SBP > 160 Code(s): I10 - ESSENTIAL (PRIMARY) HYPERTENSION (3) Diabetes Current Visit: Yes Status: Acute Assessment & Plan: SSI, accucheck, and resuming home meds. Code(s): E11.9 - TYPE 2 DIABETES MELLITUS WITHOUT COMPLICATIONS Telemedicine Encounter - Telemedicine Encounter Telemedicine Encounter: The entirety of this encounter was performed via Telemedicine" The pt gave me verbal consent to have this telemedicine
[2023-05-12] MEDS ORDERED: Apresoline 25 MG TABLET PO PRN (21:44)
[2023-05-12 23:32] VITALS: RESP 16
--- NOTE | 2023-05-13 05:11 | PCM.NOTE ---
Date and Time: 05/13/23 0502 Subjective Assessment: is a 57 year old male with hx of DMII, HTN, HLP and is here with c/o dizziness and lightheadedness since yesterday. thought he was a bit "off" as well. 2 weeks ago, he had a 3 days "flu like" symptoms - nausea, vomiting, diarrhea, poor intake. He went to ER and was told he was dehydrated, IVF given. They wanted to do a CT head then, but he refused. He gotten over this episode and has been doing fine in term of intake. Has been fine until yesterday. CT head 05/12 showing posterior infarct vs artifact. Neurology consulted. They want MRI of brain tomorrow. He has no acute neurological issue at this time besides the dizziness and lightheadedness. No deficit in facial symmetry nor speech, nor comprehension. No tremor OBJECTIVE DATA Vital Signs: Vital Signs - 24 hr Temp Pulse Resp BP BP Pulse Ox 05/13/23 03:43 97.1 F 50 L 16 134/77 96 05/12/23 23:31 97.7 F 55 L 16 131/70 96 05/12/23 21:00 97.8 F 50 L 18 137/83 171/81 96 05/12/23 20:34 55 L 12 162/80 05/12/23 20:30 59 L 14 187/112 92 L 05/12/23 20:00 61 21 159/81 94 L 05/12/23 19:30 54 L 14 143/66 93 L 05/12/23 19:00 53 L 18 156/85 93 L 05/12/23 18:30 56 L 18 150/81 94 L 05/12/23 17:30 57 L 14 128/78 93 L 05/12/23 17:00 61 15 159/84 97 05/12/23 16:47 59 L 16 168/90 98 Pain Assessment - Last Documented Pain Intensity 0 Intake and Output: Intake & Output 05/10/23 05/11/23 05/12/23 05/13/23 11:59 11:59 11:59 11:59 Intake Total 380 Balance 380 Weight 98.9 kg Lab Results: Lab Results-Last 24 Hours 05/12/23 05/12/23 05/12/23 Range/Units 17:10 18:00 18:05 WBC 9.3 (4.0-10.5) x10^3/uL RBC 5.09 (4.1-5.6) x10^6/uL Hgb 15.6 (12.5-18.0) g/dL Hct 44.9 (42-50) % MCV 88.2 (78-100) fL MCH 30.6 (26-32) pg MCHC 34.7 (32-36) g/dL RDW 13.0 (11.5-14.0) % Plt Count 254 (150-450) x10^3/uL MPV 9.8 (7.5-11.0) fL Gran % 67.8 H (36.0-66.0) % Immature Gran % (Auto) 0.2 (0.00-0.4) % Nucleat RBC Rel Count 0.0 (0.00-0.1) % Eos # (Auto) 0.09 (0-0.5) x10^3/uL Immature Gran # (Auto) 0.02 (0.00-0.03) x10^3u/L Absolute Lymphs (auto) 2.08 (1.0-4.6) x10^3/uL Absolute Monos (auto) 0.77 (0.0-1.3) x10^3/uL Absolute Nucleated RBC 0.00 (0.00-0.01) x10^3u/L Lymphocytes % 22.4 L (24.0-44.0) % Monocytes % 8.3 (0.0-12.0) % Eosinophils % 1.0 (0.00-5.0) % Basophils % 0.3 (0.0-0.4) % Absolute Granulocytes 6.31 (1.4-6.9) x10^3/uL Basophils # 0.03 (0-0.4) x10^3/uL Sodium (137-145) mmol/L Potassium (3.5-5.1) mmol/L Chloride (98-107) mmol/L Carbon Dioxide (22-30) mmol/L Anion Gap (5-15) MEQ/L BUN (9-20) mg/dL Creatinine (0.66-1.25) mg/dL Estimated GFR ML/MIN Glucose (74-106) mg/dL POC Glucometer (74 to 106) mg/dL Calcium (8.4-10.2) mg/dL Total Bilirubin (0.2-1.3) mg/dL AST (17-59) U/L ALT (0-50) U/L Alkaline Phosphatase (38-126) U/L Troponin I (0.000-0.034) ng/mL Serum Total Protein (6.3-8.2) g/dL Albumin (3.5-5.0) g/dL Urine Color Yellow (Yellow) Urine Appearance Clear (Clear) Urine pH 6.5 (4.6-8.0) Ur Specific [place] <=1.005 (1.005-1.030) Urine Protein Negative (Negative) Urine Glucose (UA) Negative (Negative) mg/dL Urine Ketones Negative (Negative) Urine Blood Negative (Negative) Urine Nitrite Negative (Negative) Urine Bilirubin Negative (Negative) Urine Urobilinogen 0.2 (0.2) mg/dL Ur Leukocyte Esterase Negative (Negative) U Hyaline Cast (Auto) NONE SEEN (0-2) /LPF Urine Microscopic RBC 0-2 (0-5) /HPF Urine Microscopic WBC 0-2 (0-5) /HPF Ur Epithelial Cells None Seen (None Seen) /HPF Urine Bacteria None Seen (None Seen) /HPF Urine Culture Reflexed NO (NO) Ethyl Alcohol (0-10) mg/dL Monoscreen (NEGATIVE) Influenza Type A Ag NEGATIVE (NEGATIVE) Influenza Type B Ag NEGATIVE (NEGATIVE) RSV (PCR) NEGATIVE (NEGATIVE) SARS-CoV-2 (PCR) NEGATIVE (NEGATIVE) 05/12/23 05/12/23 05/12/23 Range/Units 18:05 18:05 18:05 WBC (4.0-10.5) x10^3/uL RBC (4.1-5.6) x10^6/uL Hgb (12.5-18.0) g/dL Hct (42-50) % MCV (78-100) fL MCH (26-32) pg MCHC (32-36) g/dL RDW (11.5-14.0) % Plt Count (150-450) x10^3/uL MPV (7.5-11.0) fL Gran % (36.0-66.0) % Immature Gran % (Auto) (0.00-0.4) % Nucleat RBC Rel Count (0.00-0.1) % Eos # (Auto) (0-0.5) x10^3/uL Immature Gran # (Auto) (0.00-0.03) x10^3u/L Absolute Lymphs (auto) (1.0-4.6) x10^3/uL Absolute Monos (auto) (0.0-1.3) x10^3/uL Absolute Nucleated RBC (0.00-0.01) x10^3u/L Lymphocytes % (24.0-44.0) % Monocytes % (0.0-12.0) % Eosinophils % (0.00-5.0) % Basophils % (0.0-0.4) % Absolute Granulocytes (1.4-6.9) x10^3/uL Basophils # (0-0.4) x10^3/uL Sodium 138 (137-145) mmol/L Potassium 3.8 (3.5-5.1) mmol/L Chloride 103 (98-107) mmol/L Carbon Dioxide 27 (22-30) mmol/L Anion Gap 11.7 (5-15) MEQ/L BUN 12 (9-20) mg/dL Creatinine 1.01 (0.66-1.25) mg/dL Estimated GFR 86.2 ML/MIN Glucose 146 H (74-106) mg/dL POC Glucometer (74 to 106) mg/dL Calcium 9.6 (8.4-10.2) mg/dL Total Bilirubin 0.70 (0.2-1.3) mg/dL AST 27 (17-59) U/L ALT 27 (0-50) U/L Alkaline Phosphatase 62 (38-126) U/L Troponin I < 0.012 (0.000-0.034) ng/mL Serum Total Protein 7.6 (6.3-8.2) g/dL Albumin 4.6 (3.5-5.0) g/dL Urine Color (Yellow) Urine Appearance (Clear) Urine pH (4.6-8.0) Ur Specific [place] (1.005-1.030) Urine Protein (Negative) Urine Glucose (UA) (Negative) mg/dL Urine Ketones (Negative) Urine Blood (Negative) Urine Nitrite (Negative) Urine Bilirubin (Negative) Urine Urobilinogen (0.2) mg/dL Ur Leukocyte Esterase (Negative) U Hyaline Cast (Auto) (0-2) /LPF Urine Microscopic RBC (0-5) /HPF Urine Microscopic WBC (0-5) /HPF Ur Epithelial Cells (None Seen) /HPF Urine Bacteria (None Seen) /HPF Urine Culture Reflexed (NO) Ethyl Alcohol < 10 (0-10) mg/dL Monoscreen NEGATIVE (NEGATIVE) Influenza Type A Ag (NEGATIVE) Influenza Type B Ag (NEGATIVE) RSV (PCR) (NEGATIVE) SARS-CoV-2 (PCR) (NEGATIVE) 05/12/23 05/12/23 Range/Units 21:20 21:52 WBC (4.0-10.5) x10^3/uL RBC (4.1-5.6) x10^6/uL Hgb (12.5-18.0) g/dL Hct (42-50) % MCV (78-100) fL MCH (26-32) pg MCHC (32-36) g/dL RDW (11.5-14.0) % Plt Count (150-450) x10^3/uL MPV (7.5-11.0) fL Gran % (36.0-66.0) % Immature Gran % (Auto) (0.00-0.4) % Nucleat RBC Rel Count (0.00-0.1) % Eos # (Auto) (0-0.5) x10^3/uL Immature Gran # (Auto) (0.00-0.03) x10^3u/L Absolute Lymphs (auto) (1.0-4.6) x10^3/uL Absolute Monos (auto) (0.0-1.3) x10^3/uL Absolute Nucleated RBC (0.00-0.01) x10^3u/L Lymphocytes % (24.0-44.0) % Monocytes % (0.0-12.0) % Eosinophils % (0.00-5.0) % Basophils % (0.0-0.4) % Absolute Granulocytes (1.4-6.9) x10^3/uL Basophils # (0-0.4) x10^3/uL Sodium (137-145) mmol/L Potassium (3.5-5.1) mmol/L Chloride (98-107) mmol/L Carbon Dioxide (22-30) mmol/L Anion Gap (5-15) MEQ/L BUN (9-20) mg/dL Creatinine (0.66-1.25) mg/dL Estimated GFR ML/MIN Glucose (74-106) mg/dL POC Glucometer 112 H (74 to 106) mg/dL Calcium (8.4-10.2) mg/dL Total Bilirubin (0.2-1.3) mg/dL AST (17-59) U/L ALT (0-50) U/L Alkaline Phosphatase (38-126) U/L Troponin I < 0.012 (0.000-0.034) ng/mL Serum Total Protein (6.3-8.2) g/dL Albumin (3.5-5.0) g/dL Urine Color (Yellow) Urine Appearance (Clear) Urine pH (4.6-8.0) Ur Specific [place] (1.005-1.030) Urine Protein (Negative) Urine Glucose (UA) (Negative) mg/dL Urine Ketones (Negative) Urine Blood (Negative) Urine Nitrite (Negative) Urine Bilirubin (Negative) Urine Urobilinogen (0.2) mg/dL Ur Leukocyte Esterase (Negative) U Hyaline Cast (Auto) (0-2) /LPF Urine Microscopic RBC (0-5) /HPF Urine Microscopic WBC (0-5) /HPF Ur Epithelial Cells (None Seen) /HPF Urine Bacteria (None Seen) /HPF Urine Culture Reflexed (NO) Ethyl Alcohol (0-10) mg/dL Monoscreen (NEGATIVE) Influenza Type A Ag (NEGATIVE) Influenza Type B Ag (NEGATIVE) RSV (PCR) (NEGATIVE) SARS-CoV-2 (PCR) (NEGATIVE) Radiology Exams: Radiology Procedures Category Date Time Status HEAD WITHOUT CONTRAST [CT] Stat Exams 05/12/23 17:27 Taken MRI BRAIN W/O CONTRAST [MRI] Routine Exams 05/13/23 07:00 Ordered Assessment/Plan (1) Dizziness Current Visit: Yes Status: Acute Assessment & Plan: CT head showing posterior infarct vs artifact. Neurology consulted. They want MRI of brain tomorrow. He has no acute neurological issue at this time besides the dizziness and lightheadedness. No deficit in facial symmetry nor speech, nor comprehension. No tremor Continue ASA 23 hrs obs Full code Lovenox for DVT prophylaxis Code(s): R42 - DIZZINESS AND GIDDINESS (2) Essential (primary) hypertension Current Visit: Yes Status: Acute Assessment & Plan: BP is uncontrolled. Lisinopril was stopped last weak due to a dry cough. he did this on his own. Has not gotten back to his PCP yet. On Atenolol. I will add Lo sartan 25mg daily today, and prn hydralazine for SBP > 160 Code(s): I10 - ESSENTIAL (PRIMARY) HYPERTENSION (3) Diabetes Current Visit: Yes Status: Acute Assessment & Plan: SSI, accucheck, and resuming home meds. Code(s): E11.9 - TYPE 2 DIABETES MELLITUS WITHOUT COMPLICATIONS Code(s): R42 - DIZZINESS AND GIDDINESS (2) Diabetes Current Visit: Yes Status: Acute Code(s): E11.9 - TYPE 2 DIABETES MELLITUS WITHOUT COMPLICATIONS (3) Essential (primary) hypertension Current Visit: Yes Status: Acute Code(s): I10 - ESSENTIAL (PRIMARY) HYPERTENSION
[2023-05-13 07:30] VITALS: O2SAT 97
[2023-05-13 08:00] LABS: Hemoglobin 14.6 g/dL (12.5-18.0); Mean Cell Volume 89.2 fL (78-100); Mean Corpuscular Hemoglobin 30.3 pg (26-32); Mean Platelet Volume 9.7 fL (7.5-11.0); Platelet Count 209 x10^3/uL (150-450); Red Blood Count 4.82 x10^6/uL (4.1-5.6); Red Cell Distribution Width 13.1 % (11.5-14.0); White Blood Count 7.2 x10^3/uL (4.0-10.5)
[2023-05-13] MEDS ORDERED: Glucophage 500 MG PO SCH (08:00)
[2023-05-13 08:13] LABS: ALBUMIN 4.1 g/dL (3.5-5.0); ANION GAP 11.9 MEQ/L (5-15); Calcium 8.9 mg/dL (8.4-10.2); Creatinine 1 0.88 mg/dL (0.66-1.25); EST GLOMERULAR FILTRATION RATE 99.7 ML/MIN; Potassium 4.3 mmol/L (3.5-5.1); Total Protein 6.8 g/dL (6.3-8.2)
--- NOTE | 2023-05-13 08:40 | XRAY ---
Indication: Syncope. Multiple contiguous axial images obtained through the head without contrast. Comparison: None Ventriculosulcal pattern appears symmetric. Basal ganglia demonstrates small 1 cm round hypodensity bilaterally either remote infarcts versus Virchow Clarke spaces. No acute intracranial hemorrhage, abnormal extra-axial fluid collection, or mass effect. Fourth ventricle is midline without hydrocephalus. [place]-white matter differentiation preserved. Bony calvarium intact. Visualized paranasal sinuses and mastoid air cells are clear. 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 No acute intracranial abnormalities.
[2023-05-13] MEDS ORDERED: ZOCOR 20MG PO SCH (10:00)
[2023-05-13] MEDS ORDERED: ENOXAPARIN SODIUM SQ SCH (10:00)
[2023-05-13] MEDS ORDERED: ECOTRIN 81 MG PO SCH (10:00)
[2023-05-13] MEDS ORDERED: Cozaar 50 MG PO SCH (10:00)
[2023-05-13] MEDS ORDERED: TENORMIN 50 MG PO SCH (10:00)
--- NOTE | 2023-05-13 11:36 | XRAY ---
Indication: Syncope. Dizziness. Sagittal, coronal, and axial MRI brain performed without contrast using T1, T2, FLAIR, diffusion, and ADC sequences. Comparison: None. Ventricles focal pattern appears symmetric. Basal ganglia demonstrate small centimeter/subcentimeter round CSF signal bilaterally either remote infarcts versus Virchow Clarke spaces. No acute intracranial hemorrhage, abnormal extra-axial fluid collection, or mass effect. Diffusion images are negative for restricted signal. Fourth ventricle is midline without hydrocephalus. 7/8 cranial nerve complex bilaterally symmetric. Normal flow void signal within the major intracerebral circulation. Normal-appearing craniocervical junction and sella turcica. Paranasal sinuses demonstrate minimal mucosal thickening both ethmoid and right frontal sinuses. Inferior mastoid air cells demonstrates tiny fluid signal left greater than right presumed inflammatory. Impression: 1. Bilaterally symmetric basal ganglia remote infarcts versus Virchow Clarke spaces. Findings reported on ER CT head exam one day earlier. 2. No acute intracranial abnormalities or evidence for evolving large vessel territorial stroke. 3. Incidental paranasal sinus disease. Flow signal in both mastoid air cells presumed inflammatory as well.
[2023-05-13 11:47] VITALS: TEMP 97.8
--- NOTE | 2023-05-13 11:58 | XRAY ---
Indication: Dizziness. Syncope. Negative CT head and MRI brain exam. Conventional contrast enhanced CTA head performed using 100 cc Isovue 370 contrast. 2-D sagittal and coronal reformatted images obtained. Additional 3-D reformatted images obtained using a separate workstation. Comparison: None Distal internal carotid arteries are bilaterally symmetric without critical stenosis, obstruction, or AV malformation. Normal carotid terminus with normal branching A1 and M1 segments bilaterally. More distal anterior cerebral and middle cerebral arteries are normal in CTA appearance bilaterally. Posterior circulation demonstrates normal CTA appearance to the distal vertebral, basilar, left/right posterior cerebral, left/right superior cerebellar, and anterior inferior cerebellar arteries. Visualized venous sinuses/drainage unremarkable. Brain parenchyma is negative for abnormal enhancing intra or extra-axial mass. Impression: Normal CTA head with contrast exam.
[2023-05-13 12:30] VITALS: BP 157/64; PULSE 51
--- NOTE | 2023-05-13 12:43 | PCM.DS ---
Discharge Summary Date of Admission: 05/12/23 20:56 Date of Discharge: 05/13/23 Admitting Physician: RIANNA MUSE DO Primary Care Provider: REMBERTO THOMAS Allergies Allergies cephalexin [From Keflex] Adverse Reaction (Intermediate, Verified 04/19/23 18:31) [facility] Summary - Hospital Course Hospital Course: is a 57 year old male with hx of DMII, HTN, HLP and is here with c/o dizziness and lightheadedness since yesterday. thought he was a bit "off" as well. 2 weeks ago, he had a 3 days "flu like" symptoms - nausea, vomiting, diarrhea, poor intake. He went to ER and was told he was dehydrated, IVF given. They wanted to do a CT head then, but he refused. He gotten over this episode and has been doing fine in term of intake. Has been fine until yesterday. Denies vision change, hearing loss, focal weakness, paralysis, speech problem. Denies seizure, syncope. No headache. Denies chest pain, palpitation, SOB, edema. N eurology consulted. CTA head/neck performed and normal. 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 No acute intracranial abnormalities or evidence for evolving large vessel territorial stroke. No further dizziness, patient requesting discharge with neurology follow up as OP. Discussed the possibility of medications contributing to his dizziness. We will cut his atenolol dose down from 50mg to 25mg daily. Losartan 50mg daily started to replace his lisinopril which was causing a dry cough. Patient advised follow up with pcp and neurology. Patient agreeable to plan and ready for discharge. Discharge Note New Diagnosis: Dizziness New Medications: Atenolol changed to 25mg daily, Losartan 50mg daily to replace lisinopril Follow Up: PCP/neurology Latest Assessment & Plan (1) Dizziness Current Visit: Yes Status: Acute Assessment & Plan: CT head showing posterior infarct vs artifact. Neurology consulted. They want MRI of brain tomorrow. He has no acute neurological issue at this time besides the dizziness and lightheadedness. No deficit in facial symmetry nor speech, nor comprehension. No tremor Continue ASA 23 hrs obs Full code Lovenox for DVT prophylaxis Code(s): R42 - DIZZINESS AND GIDDINESS (2) Essential (primary) hypertension Current Visit: Yes Status: Acute Assessment & Plan: BP is uncontrolled. Lisinopril was stopped last weak due to a dry cough. he did this on his own. Has not gotten back to his PCP yet. On Atenolol. I will add Losartan 25mg daily today, and prn hydralazine for SBP > 160 Code(s): I10 - ESSENTIAL (PRIMARY) HYPERTENSION (3) Diabetes Current Visit: Yes Status: Acute Assessment & Plan: SSI, accucheck, and resuming home meds. Code(s): E11.9 - TYPE 2 DIABETES MELLITUS WITHOUT COMPLICATIONS I spent 35 minutes [id number] with the patient on the day of discharge performing discharge exam, discussing hospital stay and discharge instructions with patient and caregivers, preparation of discharge records, prescriptions & referral forms and addressing any questions/concerns the patient had as documen curry above. - Vitals & Intake/Output Vital Signs: Vital Signs Temperature 97.8 F 05/13/23 11:47 Pulse Rate 51 L 05/13/23 12:29 Respiratory Rate 16 05/13/23 11:47 Blood Pressure 157/64 05/13/23 12:29 O2 Sat by Pulse Oximetry 97 05/13/23 07:29 Intake & Output: Intake & Output 05/11/23 05/12/23 05/13/23 05/14/23 11:59 11:59 11:59 11:59 Intake Total 380 Balance 380 Weight 98.9 kg - Lab Result Diagrams: 05/13/23 07:55 05/13/23 07:55 Lab Results-Last 24 Hrs: Lab Results-Last 24 Hours 05/12/23 05/12/23 05/12/23 Range/Units 17:10 18:00 18:05 WBC 9.3 (4.0-10.5) x10^3/uL RBC 5.09 (4.1-5.6) x10^6/uL Hgb 15.6 (12.5-18.0) g/dL Hct 44.9 (42-50) % MCV 88.2 (78-100) fL MCH 30.6 (26-32) pg MCHC 34.7 (32-36) g/dL RDW 13.0 (11.5-14.0) % Plt Count 254 (150-450) x10^3/uL MPV 9.8 (7.5-11.0) fL Gran % 67.8 H (36.0-66.0) % Immature Gran % (Auto) 0.2 (0.00-0.4) % Nucleat RBC Rel Count 0.0 (0.00-0.1) % Eos # (Auto) 0.09 (0-0.5) x10^3/uL Immature Gran # (Auto) 0.02 (0.00-0.03) x10^3u/L Absolute Lymphs (auto) 2.08 (1.0-4.6) x10^3/uL Absolute Monos (auto) 0.77 (0.0-1.3) x10^3/uL Absolute Nucleated RBC 0.00 (0.00-0.01) x10^3u/L Lymphocytes % 22.4 L (24.0-44.0) % Monocytes % 8.3 (0.0-12.0) % Eosinophils % 1.0 (0.00-5.0) % Basophils % 0.3 (0.0-0.4) % Absolute Granulocytes 6.31 (1.4-6.9) x10^3/uL Basophils # 0.03 (0-0.4) x10^3/uL Sodium (137-145) mmol/L Potassium (3.5-5.1) mmol/L Chloride (98-107) mmol/L Carbon Dioxide (22-30) mmol/L Anion Gap (5-15) MEQ/L BUN (9-20) mg/dL Creatinine (0.66-1.25) mg/dL Estimated GFR ML/MIN Glucose (74-106) mg/dL POC Glucometer (74 to 106) mg/dL Calcium (8.4-10.2) mg/dL Total Bilirubin (0.2-1.3) mg/dL AST (17-59) U/L ALT (0-50) U/L Alkaline Phosphatase (38-126) U/L Troponin I (0.000-0.034) ng/mL Serum Total Protein (6.3-8.2) g/dL Albumin (3.5-5.0) g/dL Urine Color Yellow (Yellow) Urine Appearance Clear (Clear) Urine pH 6.5 (4.6-8.0) Ur Specific [place] <=1.005 (1.005-1.030) Urine Protein Negative (Negative) Urine Glucose (UA) Negative (Negative) mg/dL Urine Ketones Negative (Negative) Urine Blood Negative (Negative) Urine Nitrite Negative (Negative) Urine Bilirubin Negative (Negative) Urine Urobilinogen 0.2 (0.2) mg/dL Ur Leukocyte Esterase Negative (Negative) U Hyaline Cast (Auto) NONE SEEN (0-2) /LPF Urine Microscopic RBC 0-2 (0-5) /HPF Urine Microscopic WBC 0-2 (0-5) /HPF Ur Epithelial Cells None Seen (None Seen) /HPF Urine Bacteria None Seen (None Seen) /HPF Urine Culture Reflexed NO (NO) Ethyl Alcohol (0-10) mg/dL Monoscreen (NEGATIVE) Influenza Type A Ag NEGATIVE (NEGATIVE) Influenza Type B Ag NEGATIVE (NEGATIVE) RSV (PCR) NEGATIVE (NEGATIVE) SARS-CoV-2 (PCR) NEGATIVE (NEGATIVE) 05/12/23 05/12/23 05/12/23 Range/Units 18:05 18:05 18:05 WBC (4.0-10.5) x10^3/uL RBC (4.1-5.6) x10^6/uL Hgb (12.5-18.0) g/dL Hct (42-50) % MCV (78-100) fL MCH (26-32) pg MCHC (32-36) g/dL RDW (11.5-14.0) % Plt Count (150-450) x10^3/uL MPV (7.5-11.0) fL Gran % (36.0-66.0) % Immature Gran % (Auto) (0.00-0.4) % Nucleat RBC Rel Count (0.00-0.1) % Eos # (Auto) (0-0.5) x10^3/uL Immature Gran # (Auto) (0.00-0.03) x10^3u/L Absolute Lymphs (auto) (1.0-4.6) x10^3/uL Absolute Monos (auto) (0.0-1.3) x10^3/uL Absolute Nucleated RBC (0.00-0.01) x10^3u/L Lymphocytes % (24.0-44.0) % Monocytes % (0.0-12.0) % Eosinophils % (0.00-5.0) % Basophils % (0.0-0.4) % Absolute Granulocytes (1.4-6.9) x10^3/uL Basophils # (0-0.4) x10^3/uL Sodium 138 (137-145) mmol/L Potassium 3.8 (3.5-5.1) mmol/L Chloride 103 (98-107) mmol/L Carbon Dioxide 27 (22-30) mmol/L Anion Gap 11.7 (5-15) MEQ/L BUN 12 (9-20) mg/dL Creatinine 1.01 (0.66-1.25) mg/dL Estimated GFR 86.2 ML/MIN Glucose 146 H (74-106) mg/dL POC Glucometer (74 to 106) mg/dL Calcium 9.6 (8.4-10.2) mg/dL Total Bilirubin 0.70 (0.2-1.3) mg/dL AST 27 (17-59) U/L ALT 27 (0-50) U/L Alkaline Phosphatase 62 (38-126) U/L Troponin I < 0.012 (0.000-0.034) ng/mL Serum Total Protein 7.6 (6.3-8.2) g/dL Albumin 4.6 (3.5-5.0) g/dL Urine Color (Yellow) Urine Appearance (Clear) Urine pH (4.6-8.0) Ur Specific [place] (1.005-1.030) Urine Protein (Negative) Urine Glucose (UA) (Negative) mg/dL Urine Ketones (Negative) Urine Blood (Negative) Urine Nitrite (Negative) Urine Bilirubin (Negative) Urine Urobilinogen (0.2) mg/dL Ur Leukocyte Esterase (Negative) U Hyaline Cast (Auto) (0-2) /LPF Urine Microscopic RBC (0-5) /HPF Urine Microscopic WBC (0-5) /HPF Ur Epithelial Cells (None Seen) /HPF Urine Bacteria (None Seen) /HPF Urine Culture Reflexed (NO) Ethyl Alcohol < 10 (0-10) mg/dL Monoscreen NEGATIVE (NEGATIVE) Influenza Type A Ag (NEGATIVE) Influenza Type B Ag (NEGATIVE) RSV (PCR) (NEGATIVE) SARS-CoV-2 (PCR) (NEGATIVE) 05/12/23 05/12/23 05/13/23 Range/Units 21:20 21:52 07:37 WBC (4.0-10.5) x10^3/uL RBC (4.1-5.6) x10^6/uL Hgb (12.5-18.0) g/dL Hct (42-50) % MCV (78-100) fL MCH (26-32) pg MCHC (32-36) g/dL RDW (11.5-14.0) % Plt Count (150-450) x10^3/uL MPV (7.5-11.0) fL Gran % (36.0-66.0) % Immature Gran % (Auto) (0.00-0.4) % Nucleat RBC Rel Count (0.00-0.1) % Eos # (Auto) (0-0.5) x10^3/uL Immature Gran # (Auto) (0.00-0.03) x10^3u/L Absolute Lymphs (auto) (1.0-4.6) x10^3/uL Absolute Monos (auto) (0.0-1.3) x10^3/uL Absolute Nucleated RBC (0.00-0.01) x10^3u/L Lymphocytes % (24.0-44.0) % Monocytes % (0.0-12.0) % Eosinophils % (0.00-5.0) % Basophils % (0.0-0.4) % Absolute Granulocytes (1.4-6.9) x10^3/uL Basophils # (0-0.4) x10^3/uL Sodium (137-145) mmol/L Potassium (3.5-5.1) mmol/L Chloride (98-107) mmol/L Carbon Dioxide (22-30) mmol/L Anion Gap (5-15) MEQ/L BUN (9-20) mg/dL Creatinine (0.66-1.25) mg/dL Estimated GFR ML/MIN Glucose (74-106) mg/dL POC Glucometer 112 H 123 H (74 to 106) mg/dL Calcium (8.4-10.2) mg/dL Total Bilirubin (0.2-1.3) mg/dL AST (17-59) U/L ALT (0-50) U/L Alkaline Phosphatase (38-126) U/L Troponin I < 0.012 (0.000-0.034) ng/mL Serum Total Protein (6.3-8.2) g/dL Albumin (3.5-5.0) g/dL Urine Color (Yellow) Urine Appearance (Clear) Urine pH (4.6-8.0) Ur Specific [place] (1.005-1.030) Urine Protein (Negative) Urine Glucose (UA) (Negative) mg/dL Urine Ketones (Negative) Urine Blood (Negative) Urine Nitrite (Negative) Urine Bilirubin (Negative) Urine Urobilinogen (0.2) mg/dL Ur Leukocyte Esterase (Negative) U Hyaline Cast (Auto) (0-2) /LPF Urine Microscopic RBC (0-5) /HPF Urine Microscopic WBC (0-5) /HPF Ur Epithelial Cells (None Seen) /HPF Urine Bacteria (None Seen) /HPF Urine Culture Reflexed (NO) Ethyl Alcohol (0-10) mg/dL Monoscreen (NEGATIVE) Influenza Type A Ag (NEGATIVE) Influenza Type B Ag (NEGATIVE) RSV (PCR) (NEGATIVE) SARS-CoV-2 (PCR) (NEGATIVE) 05/13/23 05/13/23 05/13/23 Range/Units 07:55 07:55 11:37 WBC 7.2 (4.0-10.5) x10^3/uL RBC 4.82 (4.1-5.6) x10^6/uL Hgb 14.6 (12.5-18.0) g/dL Hct 43.0 (42-50) % MCV 89.2 (78-100) fL MCH 30.3 (26-32) pg MCHC 34.0 (32-36) g/dL RDW 13.1 (11.5-14.0) % Plt Count 209 (150-450) x10^3/uL MPV 9.7 (7.5-11.0) fL Gran % (36.0-66.0) % Immature Gran % (Auto) (0.00-0.4) % Nucleat RBC Rel Count (0.00-0.1) % Eos # (Auto) (0-0.5) x10^3/uL Immature Gran # (Auto) (0.00-0.03) x10^3u/L Absolute Lymphs (auto) (1.0-4.6) x10^3/uL Absolute Monos (auto) (0.0-1.3) x10^3/uL Absolute Nucleated RBC (0.00-0.01) x10^3u/L Lymphocytes % (24.0-44.0) % Monocytes % (0.0-12.0) % Eosinophils % (0.00-5.0) % Basophils % (0.0-0.4) % Absolute Granulocytes (1.4-6.9) x10^3/uL Basophils # (0-0.4) x10^3/uL Sodium 137 (137-145) mmol/L Potassium 4.3 (3.5-5.1) mmol/L Chloride 105 (98-107) mmol/L Carbon Dioxide 24 (22-30) mmol/L Anion Gap 11.9 (5-15) MEQ/L BUN 14 (9-20) mg/dL Creatinine 0.88 (0.66-1.25) mg/dL Estimated GFR 99.7 ML/MIN Glucose 118 H (74-106) mg/dL POC Glucometer 98 (74 to 106) mg/dL Calcium 8.9 (8.4-10.2) mg/dL Total Bilirubin 1.00 (0.2-1.3) mg/dL AST 24 (17-59) U/L ALT 26 (0-50) U/L Alkaline Phosphatase 58 (38-126) U/L Troponin I (0.000-0.034) ng/mL Serum Total Protein 6.8 (6.3-8.2) g/dL Albumin 4.1 (3.5-5.0) g/dL Urine Color (Yellow) Urine Appearance (Clear) Urine pH (4.6-8.0) Ur Specific [place] (1.005-1.030) Urine Protein (Negative) Urine Glucose (UA) (Negative) mg/dL Urine Ketones (Negative) Urine Blood (Negative) Urine Nitrite (Negative) Urine Bilirubin (Negative) Urine Urobilinogen (0.2) mg/dL Ur Leukocyte Esterase (Negative) U Hyaline Cast (Auto) (0-2) /LPF Urine Microscopic RBC (0-5) /HPF Urine Microscopic WBC (0-5) /HPF Ur Epithelial Cells (None Seen) /HPF Urine Bacteria (None Seen) /HPF Urine Culture Reflexed (NO) Ethyl Alcohol (0-10) mg/dL Monoscreen (NEGATIVE) Influenza Type A Ag (NEGATIVE) Influenza Type B Ag (NEGATIVE) RSV (PCR) (NEGATIVE) SARS-CoV-2 (PCR) (NEGATIVE) Micro Results-Entire Visit: Accuchecks Date 05/13/23 Date 05/12/23 Time 07:46 Time 22:00 - Radiology Exams Ordered Rad Exams-Entire Visit: Radiology Procedures Category Date Time Status CTA HEAD W AND/OR WO CONTRAST [CT] Urgent Exams 05/13/23 07:55 Completed HEAD WITHOUT CONTRAST [CT] Stat Exams 05/12/23 17:27 Completed MRI BRAIN W/O CONTRAST [MRI] Routine Exams 05/13/23 07:00 Completed - Procedures and Test Procedures and Tests throughout Hospitalization: Therapy Orders & Screens 05/13/23 08:59 PT Eval & Treat ( Order) ONCE Reason for Eval:: dizziness, near syncopal episode Diagnosis: Weakness, abnormal CT head 05/13/23 09:01 OT Eval and Treat (MD Order) ONCE Comment: Physician Instructions: Reason For Exam: Reason for Evaluation: dizziness, near syncopal episode Diagnosis: Weakness, abnormal CT head Discharge Exam General Appearance: no apparent distress Neurologic Exam: alert, 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, cooperative Eye Exam: PERRL Ears, Nose, Throat Exam: normal ENT inspection Neck Exam: normal inspection Respiratory Exam: normal breath sounds, lungs clear Cardiovascular Exam: regular rate/rhythm, normal heart sounds Gastrointestinal/Abdomen Exam: soft, normal bowel sounds Male Genitalia Exam: deferred Rectal Exam: deferred Back Exam: normal inspection Extremity Exam: normal inspection Skin Exam: normal color Final Diagnosis/Problem List - Final Discharge Diagnosis/Problem (1) Dizziness Current Visit: Yes Status: Acute Code(s): R42 - DIZZINESS AND GIDDINESS (2) Diabetes Current Visit: Yes Status: Acute Code(s): E11.9 - TYPE 2 DIABETES MELLITUS WITHOUT COMPLICATIONS (3) Essential (primary) hypertension Current Visit: Yes Status: Acute Code(s): I10 - ESSENTIAL (PRIMARY) HY PERTENSION - Discharge Disposition: Home, Self-Care Condition: Stable Prescriptions: New Losartan Potassium 50 mg [Cozaar 50 MG] 50 mg PO DAILY 30 Days #30 tablet Atenolol [Tenormin] 25 mg PO DAILY 30 Days #15 tablet Continue Rosuvastatin Calcium [Crestor] 10 mg PO DAILY Aspirin 81 mg PO DAILY #0 Metformin HCl 500 mg [Glucophage 500 MG] 1,000 mg PO DAILY Discontinued Atenolol 50 mg [Tenormin 50 mg] 50 mg PO DAILY Follow up with: REMBERTO THOMAS NP [Primary Care Provider] - 05/24/23 12:00 pm REINALDO DEL ANGEL DO [NON-STAFF PHY W/O PRIVILEGES] - 1 Week
== END 2023-05-13 13:20 | disposition home or self-care (01) ==
LOC: ED 16:39 → MED SURG 20:56
PROVIDERS: ADMIT Internal Medicine; ATTEND Internal Medicine
DX: R42 Dizziness and giddiness (principal); I10 Essential (primary) hypertension; E11.9 Type 2 diabetes mellitus without complications; E78.5 Hyperlipidemia, unspecified; Z79.899 Other long term (current) drug therapy; Z20.828 Contact with and (suspected) exposure to other viral communicable diseases
CPT/HCPCS: 0241U; 36000; 36415; 70450; 70496; 70551; 80053; 81001; 82077; 82947; 84484; 85025; 85027; 86308; 93005; 96360; 97161; 99285; Q3014; 93268; J1650; A9270-GY; G0378

== ENCOUNTER 2023-05-19 11:17 | Emergency (ER) | payer BC ==
[2023-05-19 11:41] VITALS: TEMP 97.5
[2023-05-19 12:10] LABS: Absolute Neutrophil Ct (ANC) 5.91 x10^3/uL (1.4-6.9); BASOPHIL % 0.4 % (0.0-0.4); Basophil (Absolute #) 0.03 x10^3/uL (0-0.4); Eosinophil % 0.4 % (0.00-5.0); Eosinophil (Absolute #) 0.03 x10^3/uL (0-0.5); Hematocrit 45.3 % (42-50); Hemoglobin 15.5 g/dL (12.5-18.0); IMMATURE GRAN # 0.01 x10^3u/L (0.00-0.03); IMMATURE GRAN % 0.1 % (0.00-0.4); Lymphocytes % 17.7 % (24.0-44.0); Mean Corpuscular Hemoglobin 30.1 pg (26-32); Mean Corpuscular Hgb Concent. 34.2 g/dL (32-36); Mean Platelet Volume 9.8 fL (7.5-11.0); Monocyte (Absolute #) 0.55 x10^3/uL (0.0-1.3); Monocytes % 6.9 % (0.0-12.0); Neutrophil % 74.5 % (36.0-66.0); Platelet Count 263 x10^3/uL (150-450); Red Blood Count 5.15 x10^6/uL (4.1-5.6); Red Cell Distribution Width 13.2 % (11.5-14.0); White Blood Count 7.9 x10^3/uL (4.0-10.5)
--- NOTE | 2023-05-19 12:22 | XRAY ---
Indication: Lightheaded. Comparison: April 20, 2023 Portable chest better inflated and is now clear. Heart and mediastinal structures within normal limits. Bony thorax intact again with mild degenerative changes. Impression: Nonacute chest with chronic bony findings.
[2023-05-19 12:24] LABS: ALBUMIN 4.8 g/dL (3.5-5.0); ANION GAP 13.3 MEQ/L (5-15); BILIRUBIN,TOTAL 0.9 mg/dL (0.2-1.3); Calcium 9.7 mg/dL (8.4-10.2); Creatinine 1 0.93 mg/dL (0.66-1.25); EST GLOMERULAR FILTRATION RATE 95.2 ML/MIN; Potassium 4.3 mmol/L (3.5-5.1); Total Protein 7.8 g/dL (6.3-8.2)
[2023-05-19 13:01] VITALS: O2SAT 100
--- NOTE | 2023-05-19 13:41 | ERPHSYRPT ---
- History of Present Illness Time Seen by Provider: 05/19/23 11:25 Source: patient Exam Limitations: no limitations Patient Subjective Stated Complaint: Dizziness/light headed Triage Nursing Assessment: Patient ambulated back to ED and transferred self to bed. Patient A+O X 3. Patient's skin pink, warm and dry. Patient complains of occasional dizziness for the past 2 weeks. Patient states he will have intermittent dizzy spells that last approx 5 min that comes and goes. Patient denies pain or discomfort. Physician History: 57 years old male with history of hypertension presented in the ER with chief complaint of lightheadedness. Patient reports having episodes of lightheadedness off and on for the last 2 weeks. Patient reported it started after he had a flu with intractable vomiting diarrhea/dehydration the week before the symptoms started. Patient was evaluated in this ER 5 days ago with thorough workup done including which are negative for any acute findings and had some remote infarct. Patient is scheduled to see neurology and cardiology. Patient reports feeling lightheaded earlier and it is improved now. He denies any focal numbness tingling or weakness. When asked patient to describe his di zziness lightheadedness he could not explain very well. No visual disturbance. No difficulty speech. Patient is at his baseline currently. Allergies/Adverse Reactions: cephalexin [From Keflex] Adverse Reaction (Intermediate, Verified 05/19/23 11:27) Hives Home Medications: Rosuvastatin Calcium [Crestor] 10 mg PO DAILY 04/06/19 [History] Metformin HCl 500 mg [Glucophage 500 MG] 1,000 mg PO DAILY 04/19/23 [History] Hx Tetanus, Diphtheria Vaccination/Date Given: Yes Hx Influenza Vaccination/Date Given: No Hx Pneumococcal Vaccination/Date Given: No Travel Risk - International Travel Have you traveled outside of the country in past 3 weeks: No - Coronavirus Screening Are you exhibiting any of the following symptoms?: No Close contact with a COVID-19 positive Pt in past 14-21 Days: No - Vaccine Status Have you recieved a Covid-19 vaccination: Yes Store [employer]: [employer] - Vaccination Dates Dates if Unknown: unknown - Review of Systems Constitutional: No Symptoms Eyes: No Symptoms Ears, Nose, & Throat: No Symptoms Respiratory: No Symptoms Cardiac: No Symptoms Abdominal/Gastrointestinal: No Symptoms Genitourinary Symptoms: No Symptoms Musculoskeletal: No Symptoms Neurological: Dizziness Psychological: No Symptoms Endocrine: No Symptoms Hematologic/Lymphatic: No Symptoms Immunological/Allergic: No Symptoms - Past Medical History Pertinent Past Medical History: Yes Neurological History: No Pertinent History ENT History: No Pertinent History Cardiac History: High Cholesterol, Hypertension Respiratory History: No Pertinent History Endocrine Medical History: Diabetes Type II Musculoskeletal History: No Pertinent History GI Medical History: No Pertinent History History: No Pertinent History Psycho-Social History: No Pertinent History Male Reproductive Disorders: No Pertinent History - Past Surgical History Past Surgical History: Yes Neuro Surgical History: No Pertinent History Cardiac: No Pertinent History Respiratory: No Pertinent History Gastrointestinal: Hernia Repair Genitourinary: No Pertinent History Musculoskeletal: Orthopedic Surgery Male Surgical History: No Pertinent History Other Surgical History: hernia 2011, Fx ankle w/pinning 2003 - Social History Smoking Status: Never smoker Exposure to second hand smoke: No Drug Use: none Patient Lives Alone: No Significant Family History: no pertinent family hx - Nursing Vital Signs Nursing Vital Signs: Initial Vital Signs Temperature 97.5 F 05/19/23 11:28 Pulse Rate 59 L 05/19/23 11:28 Respiratory Rate 18 05/19/23 11:28 Blood Pressure 152/71 05/19/23 11:28 O2 Sat by Pulse Oximetry 98 05/19/23 11:28 Pain Scale Pain Intensity 0 - Physical Exam General Appearance: no apparent distress, alert, anxiety Eye Exam: PERRL/EOMI Ears, Nose, Throat Exam: normal ENT inspection, TMs normal, pharynx normal Neck Exam: normal inspection, non-tender, supple, full range of motion Respiratory Exam: normal breath sounds, lungs clear Cardiovascular Exam: regular rate/rhythm, normal heart sounds Gastrointestinal/Abdomen Exam: soft, normal bowel sounds, No tenderness Back Exam: normal inspection, normal range of motion Neurologic Exam: alert, 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, cooperative, naphthalene operator II-XII nml as tested, nml cerebellar function, nml station & gait, sensation nml, motor deficits, No normal mood/affect Skin Exam: normal color SpO2 Interpretation: normal SpO2: 100 O2 Delivery: Room Air - Course EKG Interpreted by Me: RATE (56), Sinus Girish, Left Nemo Deviation, NORMAL INTERVALS, Other (Nonspecific T wave changes) Lab/Rad Data: Laboratory Result Diagrams 05/19/23 12:05 05/19/23 12:05 Laboratory Results 05/19/23 05/19/23 05/19/23 Range/Units 12:05 12:05 12:05 WBC 7.9 (4.0-10.5) x10^3/uL RBC 5.15 (4.1-5.6) x10^6/uL Hgb 15.5 (12.5-18.0) g/dL Hct 45.3 (42-50) % MCV 88.0 (78-100) fL MCH 30.1 (26-32) pg MCHC 34.2 (32-36) g/dL RDW 13.2 (11.5-14.0) % Plt Count 263 (150-450) x10^3/uL MPV 9.8 (7.5-11.0) fL Gran % 74.5 H (36.0-66.0) % Immature Gran % (Auto) 0.1 (0.00-0.4) % Nucleat RBC Rel Count 0.0 (0.00-0.1) % Eos # (Auto) 0.03 (0-0.5) x10^3/uL Immature Gran # (Auto) 0.01 (0.00-0.03) x10^3u/L Absolute Lymphs (auto) 1.40 (1.0-4.6) x10^3/uL Absolute Monos (auto) 0.55 (0.0-1.3) x10^3/uL Absolute Nucleated RBC 0.00 (0.00-0.01) x10^3u/L Lymphocytes % 17.7 L (24.0-44.0) % Monocytes % 6.9 (0.0-12.0) % Eosinophils % 0.4 (0.00-5.0) % Basophils % 0.4 (0.0-0.4) % Absolute Granulocytes 5.91 (1.4-6.9) x10^3/uL Basophils # 0.03 (0-0.4) x10^3/uL Sodium 138 (137-145) mmol/L Potassium 4.3 (3.5-5.1) mmol/L Chloride 103 (98-107) mmol/L Carbon Dioxide 26 (22-30) mmol/L Anion Gap 13.3 (5-15) MEQ/L BUN 13 (9-20) mg/dL Creatinine 0.93 (0.66-1.25) mg/dL Estimated GFR 95.2 ML/MIN Glucose 119 H (74-106) mg/dL Calcium 9.7 (8.4-10.2) mg/dL Magnesium 2.0 (1.6-2.3) mg/dL Total Bilirubin 0.90 (0.2-1.3) mg/dL AST 30 (17-59) U/L ALT 28 (0-50) U/L Alkaline Phosphatase 68 (38-126) U/L Troponin I < 0.012 (0.000-0.034) ng/mL Serum Total Protein 7.8 (6.3-8.2) g/dL Albumin 4.8 (3.5-5.0) g/dL - Progress Progress: improved Progress Note: 05/19/23 13:53 57 years old male with history of hypertension presented in the ER with chief complaint of lightheadedness. Patient reports having episodes of lightheadedness off and on for the last 2 weeks. Patient reported it started after he had a flu with intractable vomiting diarrhea/dehydration the week before the symptoms started. Patient was evaluated in this ER 5 days ago with thorough workup done including which are negative for any acute findings and had some remote infarct. Patient is scheduled to see neurology and cardiology. Patient reports feeling lightheaded earlier and it is improved now. He denies any focal numbness tingling or weakness. When asked patient to describe his dizziness lightheadedness he could not explain very well. Denies sensation of passing out/near syncope. No disturbed gait. No visual disturbance. No difficulty speech. Patient is at his baseline currently. Patient has nonfocal neuroexam throughout stay in the ER. EKG is sinus with no acute ST elevation and negative troponins. Orthostatics are negative. Chemistries fairly unremarkable. Chest x-ray negative for any acute cardiopulmonary findings. I do not think we need to repeat imaging. Patient symptoms could be secondary to recent viral infection which can take up to 2 weeks and months to go away. It could be cardiac related but I do not see any arrhythmias and patient need further evaluation with Holter monitoring which she would be given here. Patient I agreed needs thorough evaluation with cardiology and neurology but outpatient. Do not think patient needs any further workup as he is asymptomatic and is being discharged. Part of his symptoms are secondary to his anxiety as well. Discussed signs symptoms of worsening needing return to ER which he seems understanding. Stable for discharge. Counseled pt/family regarding: lab results, diagnosis, need for follow-up, rad results Medical Desision Making - Independent Historian Additional History obtained from: Spouse - Diagnostic Testing Diagnostic test were ordered, analyzed, and reviewed by me: Yes Radiological Interpretation: Reviewed by me - Departure Departure Disposition: Home Clinical Impression: Intermittent lightheadedness Condition: Good Critical Care Time: No Referrals: REMBERTO THOMAS NP [Primary Care Provider] - Follow up/PCP as directed Instructions: Dizziness, Nonvertigo, (DC) Additional Instructions: Keep yourself well-hydrated. Follow-up with your primary care neurology and cardiology as scheduled. Monitor your blood pressure regularly, keep a log and follow-up with PCP. Return to ER if again having symptoms of lightheadedness, numbness tingling weakness, chest pain palpitations or shortness of breath.
[2023-05-19 14:38] VITALS: BP 122/71; PULSE 52; RESP 22
== END 2023-05-19 14:45 | disposition home or self-care (01) ==
LOC: ED 11:17
DX: R42 Dizziness and giddiness (principal); E78.5 Hyperlipidemia, unspecified; I10 Essential (primary) hypertension; E11.9 Type 2 diabetes mellitus without complications; Z79.84 Long term (current) use of oral hypoglycemic drugs; Z79.899 Other long term (current) drug therapy
CPT/HCPCS: 36000; 36415; 71045; 80053; 83735; 84484; 85025; 93005; 93041; 93225; 99284

== ENCOUNTER 2023-06-03 12:42 | Emergency (ER) | payer BC ==
--- NOTE | 2023-06-03 13:09 | ERPHSYRPT ---
- History of Present Illness Time Seen by Provider: 06/03/23 13:09 Source: patient Exam Limitations: no limitations Physician History: This is a 58-year-old white male has a history of hypertension. This is newly diagnosed. Patient has been seen in our emergency department 2-3 times in the last 2 to 3 weeks for similar complaints and symptoms. While at lunch today, patient was feeling odd and he took his blood pressure and the systolic blood pressure was in the 150s and his diastolic blood pressure was 110. Therefore, he came into the emergency department for evaluation. Patient's systolic blood pressure dropped to 151 for the systolic blood pressure and the diastolic was 85. When I evaluated this patient his systolic blood pressure was in the 125- 141 range. His heart rate is in the high 50s and low 60s normal sinus rhythm. Patient is in the process of having his hypertensive medication adjusted. Patient sees a study abroad coordinator and neurologist next week. Patient denies shortness of breath. Patient denies chest pain. Patient denies headache. There are no visual changes. Timing/Duration: today Severity: mild Associated Symptoms: No shortness of breath, No chest pain, No headaches, No weakness Allergies/Adverse Reactions: cephalexin [From Keflex] Adverse Reaction (Intermediate, Verified 06/03/23 13:02) Hives Home Medications: Rosuvastatin Calcium [Crestor] 10 mg PO DAILY 04/06/19 [History] Losartan Potassium 50 mg [Cozaar 50 MG] 50 mg PO BID 06/03/23 [History] atenoloL [Atenolol] 1 tab PO DAILY 06/03/23 [History] Hx Tetanus, Diphtheria Vaccination/Date Given: Yes Hx Influenza Vaccination/Date Given: No Hx Pneumococcal Vaccination/Date Given: No Travel Risk - International Travel Have you traveled outside of the country in past 3 weeks: No - Coronavirus Screening Are you exhibiting any of the following symptoms?: No Close contact with a COVID-19 positive Pt in past 14-21 Days: No - Vaccine Status Have you recieved a Covid-19 vaccination: Yes [employer] - Vaccination Dates Dates if Unknown: unknown - Review of Systems Constitutional: No Symptoms Eyes: No Symptoms Ears, Nose, & Throat: No Symptoms Respiratory: No Symptoms Cardiac: No Symptoms Abdominal/Gastrointestinal: No Symptoms Genitourinary Symptoms: No Symptoms Musculoskeletal: No Symptoms, Injury Neurological: No Symptoms Psychological: No Symptoms Endocrine: No Symptoms Hematologic/Lymphatic: No Symptoms Immunological/Allergic: No Symptoms All Other Systems: Reviewed and Negative - Past Medical History Pertinent Past Medical History: Yes Neurological History: No Pertinent History ENT History: No Pertinent History Cardiac History: High Cholesterol, Hypertension Respiratory History: No Pertinent History Endocrine Medical History: Diabetes Type II Musculoskeletal History: No Pertinent History GI Medical History: No Pertinent History History: No Pertinent History Psycho-Social History: No Pertinent History Male Reproductive Disorders: No Pertinent History - Past Surgical History Past Surgical History: Yes Neuro Surgical History: No Pertinent History Cardiac: No Pertinent History Respiratory: No Pertinent History Gastrointestinal: Hernia Repair Genitourinary: No Pertinent History Musculoskeletal: Orthopedic Surgery Male Surgical History: No Pertinent History Other Surgical History: hernia 2011, Fx ankle w/pinning 2003 - Social History Smoking Status: Never smoker Exposure to second hand smoke: No Drug Use: none Patient Lives Alone: No Significant Family History: no pertinent family hx - Nursing Vital Signs Nursing Vital Signs: Initial Vital Signs Temperature 97.4 F 06/03/23 12:43 Pulse Rate 58 L 06/03/23 12:43 Respiratory Rate 18 06/03/23 12:43 Blood Pressure 151/85 06/03/23 12:43 O2 Sat by Pulse Oximetry 96 06/03/23 12:43 Pain Scale Pain Intensity 0 - Physical Exam General Appearance: no apparent distress, alert, anxiety Eye Exam: PERRL/EOMI, eyes nml inspection Ears, Nose, Throat Exam: normal ENT inspection, moist mucous membranes Neck Exam: normal inspection, non-tender, supple, full range of motion Respiratory Exam: normal breath sounds, lungs clear, airway intact, No chest tenderness, No respiratory distress Cardiovascular Exam: regular rate/rhythm, normal heart sounds, normal peripheral pulses Gastrointestinal/Abdomen Exam: soft, normal bowel sounds, No tenderness Rectal Exam: not done Back Exam: normal inspection, normal range of motion, No CVA tenderness, No vertebral tenderness Extremity Exam: normal inspection, normal range of motion, pelvis stable Neurologic Exam: alert, 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, cooperative, shingle cutter II-XII nml as tested, nml cerebellar function, nml station & gait, sensation nml Skin Exam: normal color, warm, dry Lymphatic Exam: No adenopathy SpO2 Interpretation: normal O2 Delivery: Room Air - Course Nursing assessment & vital signs reviewed: Yes EKG Interpreted by Me: RATE (56), Sinus Rhythm, Left [place] Deviation (Borderline), NORMAL INTERVALS, NORMAL QRS, NORMAL ST-T, Other (No acute ischemic changes on today's twelve-lead EKG.) Ordered Tests: Active Orders 24 hr Category Date Time Status EKG-ER Only STAT Care 06/03/23 14:08 Active IV Insertion STAT Care 06/03/23 13:47 Active BMP Stat Lab 06/03/23 14:20 Completed CBC W DIFF Stat Lab 06/03/23 14:20 Completed TROPONIN Q4H Lab 06/03/23 14:20 Completed TROPONIN Q4H Lab 06/03/23 18:15 Ordered TROPONIN Q4H Lab 06/03/23 22:15 Ordered UA W/RFX UR CULTURE Stat Lab 06/03/23 14:15 Completed Lab/Rad Data: Laboratory Result Diagrams 06/03/23 14:20 06/03/23 14:20 Laboratory Results 06/03/23 06/03/23 06/03/23 Range/Units 14:20 14:20 14:20 WBC 7.8 (4.0-10.5) x10^3/uL RBC 5.14 (4.1-5.6) x10^6/uL Hgb 15.6 (12.5-18.0) g/dL Hct 45.9 (42-50) % MCV 89.3 (78-100) fL MCH 30.4 (26-32) pg MCHC 34.0 (32-36) g/dL RDW 12.8 (11.5-14.0) % Plt Count 272 (150-450) x10^3/uL MPV 9.5 (7.5-11.0) fL Gran % 68.4 H (36.0-66.0) % Immature Gran % (Auto) 0.3 (0.00-0.4) % Nucleat RBC Rel Count 0.0 (0.00-0.1) % Eos # (Auto) 0.07 (0-0.5) x10^3/uL Immature Gran # (Auto) 0.02 (0.00-0.03) x10^3u/L Absolute Lymphs (auto) 1.82 (1.0-4.6) x10^3/uL Absolute Monos (auto) 0.50 (0.0-1.3) x10^3/uL Absolute Nucleated RBC 0.00 (0.00-0.01) x10^3u/L Lymphocytes % 23.5 L (24.0-44.0) % Monocytes % 6.5 (0.0-12.0) % Eosinophils % 0.9 (0.00-5.0) % Basophils % 0.4 (0.0-0.4) % Absolute Granulocytes 5.31 (1.4-6.9) x10^3/uL Basophils # 0.03 (0-0.4) x10^3/uL Sodium 138 (137-145) mmol/L Potassium 4.2 (3.5-5.1) mmol/L Chloride 103 (98-107) mmol/L Carbon Dioxide 26 (22-30) mmol/L Anion Gap 13.2 (5-15) MEQ/L BUN 13 (9-20) mg/dL Creatinine 0.78 (0.66-1.25) mg/dL Estimated GFR 102.7 ML/MIN Glucose 109 H (74-106) mg/dL Calcium 9.7 (8.4-10.2) mg/dL Troponin I < 0.012 (0.000-0.034) ng/mL Urine Color (Yellow) Urine Appearance (Clear) Urine pH (4.6-8.0) Ur Specific [place] (1.005-1.030) Urine Protein (Negative) Urine Glucose (UA) (Negative) mg/dL Urine Ketones (Negative) Urine Blood (Negative) Urine Nitrite (Negative) Urine Bilirubin (Negative) Urine Urobilinogen (0.2) mg/dL Ur Leukocyte Esterase (Negative) U Hyaline Cast (Auto) (0-2) /LPF Urine Microscopic RBC (0-5) /HPF Urine Microscopic WBC (0-5) /HPF Ur Epithelial Cells (None Seen) /HPF Urine Bacteria (None Seen) /HPF Urine Culture Reflexed (NO) 06/03/23 Range/Units 14:15 WBC (4.0-10.5) x10^3/uL RBC (4.1-5.6) x10^6/uL Hgb (12.5-18.0) g/dL Hct (42-50) % MCV (78-100) fL MCH (26-32) pg MCHC (32-36) g/dL RDW (11.5-14.0) % Plt Count (150-450) x10^3/uL MPV (7.5-11.0) fL Gran % (36.0-66.0) % Immature Gran % (Auto) (0.00-0.4) % Nucleat RBC Rel Count (0.00-0.1) % Eos # (Auto) (0-0.5) x10^3/uL Immature Gran # (Auto) (0.00-0.03) x10^3u/L Absolute Lymphs (auto) (1.0-4.6) x10^3/uL Absolute Monos (auto) (0.0-1.3) x10^3/uL Absolute Nucleated RBC (0.00-0.01) x10^3u/L Lymphocytes % (24.0-44.0) % Monocytes % (0.0-12.0) % Eosinophils % (0.00-5.0) % Basophils % (0.0-0.4) % Absolute Granulocytes (1.4-6.9) x10^3/uL Basophils # (0-0.4) x10^3/uL Sodium (137-145) mmol/L Potassium (3.5-5.1) mmol/L Chloride (98-107) mmol/L Carbon Dioxide (22-30) mmol/L Anion Gap (5-15) MEQ/L BUN (9-20) mg/dL Creatinine (0.66-1.25) mg/dL Estimated GFR ML/MIN Glucose (74-106) mg/dL Calcium (8.4-10.2) mg/dL Troponin I (0.000-0.034) ng/mL Urine Color Yellow (Yellow) Urine Appearance Clear (Clear) Urine pH 7.0 (4.6-8.0) Ur Specific [place] <=1.005 (1.005-1.030) Urine Protein Negative (Negative) Urine Glucose (UA) Negative (Negative) mg/dL Urine Ketones Negative (Negative) Urine Blood Negative (Negative) Urine Nitrite Negative (Negative) Urine Bilirubin Negative (Negative) Urine Urobilinogen 0.2 (0.2) mg/dL Ur Leukocyte Esterase Negative (Negative) U Hyaline Cast (Auto) NONE SEEN (0-2) /LPF Urine Microscopic RBC 0-2 (0-5) /HPF Urine Microscopic WBC 0-2 (0-5) /HPF Ur Epithelial Cells None Seen (None Seen) /HPF Urine Bacteria None Seen (None Seen) /HPF Urine Culture Reflexed NO (NO) - Progress Progress: improved Progress Note: 06/03/23 15:14 This patient's medical issue is 1 of moderate complexity. The level of complexity and the workup performed is based on review of the patient's past medical history, review of the patient's medication list, the review of the patient's drug allergy list, history of present illness and physical findings on examination. I do not think the patient requires a repeat CT scan of the head. Patient is completely neurologically intact. Patient will see study abroad coordinator and neurologist next week. Patient will have a twelve-lead EKG, troponin level, CBC and a CMP level performed. I reviewed and interpreted the patient's laboratory data results. He has no evidence of any acute, emergent medical issue based on his laboratory data. Counseled pt/family regarding: lab results, diagnosis, need for follow-up Medical Desision Making - Independent Historian Additional History obtained from: Spouse - Diagnostic Testing Diagnostic test were ordered, analyzed, and reviewed by me: Yes - Risk of complications Minimal Risk: Minimal risk of morbidity - Departure Departure Disposition: Home Clinical Impression: Hypertension, Anxiety about health Condition: Stable Critical Care Time: No Referrals: REMBERTO THOMAS NP [Primary Care Provider] - Follow up/PCP as directed Additional Instructions: Drink plenty of fluids. Take your medication as prescribed. Follow-up with your study abroad coordinator and neurologist next week at your scheduled appointment date and time.
[2023-06-03 13:49] VITALS: TEMP 97.4
[2023-06-03 14:23] LABS: Appearance Clear (Clear); Bacteria None Seen /HPF (None Seen); Bilirubin Negative (Negative); Blood Negative (Negative); Epithelial Cells None Seen /HPF (None Seen); Glucose, Urine Negative (Negative); Hyaline Casts NONE SEEN /LPF (0-2); Ketones Negative (Negative); Leukocyte Esterase Negative (Negative); Nitrite Negative (Negative); Protein,Urine Dip Negative (Negative); RBC 0-2 /HPF (0-5); Specific Gravity <=1.005 (1.005-1.030); Urobilinogen 0.2 mg/dL (0.2); WBC 0-2 /HPF (0-5)
[2023-06-03 14:24] LABS: ADD URINE CULTURE? NO (NO)
[2023-06-03 14:26] LABS: Absolute Neutrophil Ct (ANC) 5.31 x10^3/uL (1.4-6.9); BASOPHIL % 0.4 % (0.0-0.4); Basophil (Absolute #) 0.03 x10^3/uL (0-0.4); Eosinophil % 0.9 % (0.00-5.0); Eosinophil (Absolute #) 0.07 x10^3/uL (0-0.5); Hematocrit 45.9 % (42-50); Hemoglobin 15.6 g/dL (12.5-18.0); IMMATURE GRAN # 0.02 x10^3u/L (0.00-0.03); IMMATURE GRAN % 0.3 % (0.00-0.4); Lymphocyte (Absolute #) 1.82 x10^3/uL (1.0-4.6); Lymphocytes % 23.5 % (24.0-44.0); Mean Cell Volume 89.3 fL (78-100); Mean Corpuscular Hemoglobin 30.4 pg (26-32); Mean Platelet Volume 9.5 fL (7.5-11.0); Monocytes % 6.5 % (0.0-12.0); Neutrophil % 68.4 % (36.0-66.0); Platelet Count 272 x10^3/uL (150-450); Red Blood Count 5.14 x10^6/uL (4.1-5.6); Red Cell Distribution Width 12.8 % (11.5-14.0); White Blood Count 7.8 x10^3/uL (4.0-10.5)
[2023-06-03 14:35] VITALS: RESP 18; O2SAT 97
[2023-06-03 14:39] LABS: Calcium 9.7 mg/dL (8.4-10.2); Creatinine 1 0.78 mg/dL (0.66-1.25); EST GLOMERULAR FILTRATION RATE 102.7 ML/MIN
[2023-06-03 14:41] LABS: Potassium 4.2 mmol/L (3.5-5.1)
[2023-06-03 14:50] LABS: ANION GAP 13.2 MEQ/L (5-15)
[2023-06-03 15:30] VITALS: BP 129/87; PULSE 56
== END 2023-06-03 15:35 | disposition home or self-care (01) ==
LOC: ED 12:42
DX: I10 Essential (primary) hypertension (principal); F45.9 Somatoform disorder, unspecified; E78.5 Hyperlipidemia, unspecified; E11.9 Type 2 diabetes mellitus without complications; Z79.899 Other long term (current) drug therapy
CPT/HCPCS: 36000; 36415; 80048; 81001; 84484; 85025; 93005; 99283

== ENCOUNTER 2023-12-24 11:34 | Emergency (ER) | payer BC ==
[2023-12-24 11:48] VITALS: TEMP 96.6
--- NOTE | 2023-12-24 12:00 | ERPHSYRPT ---
- History of Present Illness Time Seen by Provider: 12/24/23 11:55 Historian: patient Exam Limitations: no limitations Patient Subjective Stated Complaint: Abdominal pain Triage Nursing Assessment: Patient ambulated back to ED and transferred self to bed. Patient A+O X 3. Patient's skin pink, warm and dry. Patient complains of right lower/mid abdominal pain 8/10 for the past several weeks, but the pain has gotten worse. Patient complains of intermittent nausea, constipation and diarrhea. Abdomen soft and round with BS X 4. Physician History: 58yo m w/ pmhx htn, HLD, presents via private vehicle for abdominal pain for the past several months. Pt states it has worsened this week after he was working in his yard on 12/21. Pt states he has had some alternating constipation and diarrhea recently as well. Pt does not associate his abdominal pain w/ any certain foods. Pt does endorse some nausea currently but denies any vomiting. Pt reports diaphoresis o/n but denies any known fevers. Pt reports his pain is worse in the RUQ, does report some lower abdominal pain b/l as well, denies any radiation of pain. Pt reports hx of ventral abdominal hernia repair using mesh. Timing/Duration: other (ongoing for months) Activities at Onset: none Quality: cramping, sharpness Abdominal Pain Onset Location: RUQ, RLQ, LLQ Pain Radiation: no radiation Severity of Pain-Max: moderate Severity of Pain-Current: mild Modifying Factors: Improves With: nothing Associated Symptoms: diaphoresis, diarrhea, nausea, No back, No chest pain, No fever/chills, No headache, No loss of appetite, No neck pain, No shortness of breath, No syncope, No testicular pain, No vomiting Previous symptoms: same symptoms as today Allergies/Adverse Reactions: cephalexin [From Keflex] Adverse Reaction (Intermediate, Verified 12/24/23 11:41) Hives Home Medications: Rosuvastatin Calcium [Crestor] 10 mg PO DAILY 04/06/19 [History] Losartan Potassium 50 mg [Cozaar 50 MG] 50 mg PO BID 06/03/23 [History] Amlodipine Besylate 1 tab PO DAILY 12/24/23 [History] Hx Tetanus, Diphtheria Vaccination/Date Given: Yes Hx Influenza Vaccination/Date Given: No Hx Pneumococcal Vaccination/Date Given: No Immunizations Up to Date: Yes Travel Risk - International Travel Have you traveled outside of the country in past 3 weeks: No - Emerging Infectious Disease Are you exhibiting symptoms associated with any current EIDs: No - Review of Systems Constitutional: No Symptoms Ears, Nose, & Throat: No Symptoms Respiratory: No Symptoms Cardiac: No Symptoms Abdominal/Gastrointestinal: Abdominal Pain, Nausea, Diarrhea, Constipation, No Vomiting, No Hematemesis, No Hematochezia, No Melena, No Appetite Changes Genitourinary Symptoms: Hesitancy, No Dysuria, No Frequency, No Hematuria Skin: No Symptoms - Past Medical History Pertinent Past Medical History: Yes Neurological History: No Pertinent History ENT History: No Pertinent History Cardiac History: High Cholesterol, Hypertension Respiratory History: No Pertinent History Endocrine Medical History: Diabetes Type II Musculoskeletal History: No Pertinent History GI Medical History: No Pertinent History History: No Pertinent History Psycho-Social History: No Pertinent History Male Reproductive Disorders: No Pertinent History - Past Surgical History Past Surgical History: Yes Neuro Surgical History: No Pertinent History Cardiac: No Pertinent History Respiratory: No Pertinent History Gastrointestinal: Hernia Repair Genitourinary: No Pertinent History Musculoskeletal: Orthopedic Surgery Male Surgical History: No Pertinent History Other Surgical History: hernia 2012, Fx ankle w/pinning 2004 Significant Family History: no pertinent family hx - Social History Smoking Status: Never smoker Exposure to second hand smoke: No Drug Use: none Patient Lives Alone: No - Social Determinants of Health Will the patient participate in the screening: Yes Do you worry about a steady place to live?: No Do you have any problems with any of the following?: No known problems In the past 12 months,have you had to go without utilities?: No Transportation Issues: No Has anyone in your support network made you feel unsafe?: No Have you or anyone in your house had to go without enough: No - Nursing Vital Signs Nursing Vital Signs: Initial Vital Signs Blood Pressure 106/83 12/24/23 11:42 O2 Sat by Pulse Oximetry 96 12/24/23 11:42 Pain Scale Pain Intensity 5 - Physical Exam General Appearance: no apparent distress, alert Respiratory Exam: normal breath sounds, lungs clear, airway intact, No chest tenderness, No respiratory distress Cardiovascular Exam: regular rate/rhythm, normal heart sounds, tachycardia, capillary refill <2 sec Gastrointestinal/Abdomen Exam: soft, normal bowel sounds, tenderness (RUQ, RLQ and LLQ), guarding, rebound, other (+ chi's sign, - rovsing, ), No distention, No ecchymosis, No pulsatile mass, No hernia, No organomegaly Neurologic Exam: alert, 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, cooperative Skin Exam: normal color, No rash SpO2 Interpretation: normal SpO2: 98 O2 Delivery: Room Air Ordered Tests: Active Orders 24 hr Category Date Time Status ABDOMEN AND PELVIS W CONTRAST [CT] Stat Exams 12/24/23 12:00 Completed BLOOD CULTURE Stat Lab 12/24/23 13:10 Received CBC W DIFF Stat Lab 12/24/23 11:57 Completed CMP Stat Lab 12/24/23 11:57 Completed CULTURE,URINE Stat Lab 12/24/23 12:03 Received LIPASE Stat Lab 12/24/23 11:57 Completed UA W/RFX UR CULTURE Stat Lab 12/24/23 12:03 Completed Medication Summary Generic Name Dose Route Start Last Admin Trade Name Freq PRN Reason Stop Dose Admin Metronidazole 500 mg in 100 mls @ 200 mls/hr 12/24/23 15:58 12/24/23 16:07 Flagyl 500 Mg Ivpb IV 12/24/23 16:27 200 ml/hr STAT STA 200 mls/hr Administration Levofloxacin/Dextrose 500 mg in 100 mls @ 100 mls/hr 12/25/23 10:00 Levofloxacin 500mg/100ml D5w IV 01/24/24 09:59 Q24H10 HUMBERTO Sodium Chloride 1,000 mls @ 100 mls/hr 12/24/23 16:15 12/24/23 16:07 Sodium Chloride 0.9% 1000 Ml IV 01/23/24 16:14 100 mls/hr .Q10H HUMBERTO Administration Discontinued Medications Generic Name Dose Route Start Last Admin Trade Name Freq PRN Reason Stop Dose Admin Sodium Chloride 1,000 mls @ 999 mls/hr 12/24/23 12:00 12/24/23 13:13 Sodium Chloride 0.9% 1000 Ml IV 12/24/23 13:00 Infused .Q1H1M STA Infusion Sodium Chloride Confirm 12/24/23 12:04 Sodium Chloride 0.9% 1000 Ml Administered 12/24/23 12:05 Dose 1,000 mls @ ud .ROUTE .STK-MED ONE Metronidazole Confirm 12/24/23 16:04 Flagyl 500 Mg Ivpb Administered 12/24/23 16:05 Dose 500 mg in 100 mls @ ud IV .STK-MED ONE Ondansetron HCl 4 mg 12/24/23 12:00 12/24/23 12:04 Ondansetron Hcl 4 Mg/2 Ml Vial IV 12/24/23 12:01 4 mg STAT ONE Administration Ondansetron HCl Confirm 12/24/23 12:04 Ondansetron Hcl 4 Mg/2 Ml Vial Administered 12/24/23 12:05 Dose 4 mg .ROUTE .STK-MED ONE Lab/Rad Data: Laboratory Result Diagrams 12/24/23 11:57 12/24/23 11:57 Laboratory Results 12/24/23 12/24/23 12/24/23 Range/Units 12:03 11:57 11:57 WBC 17.1 H (4.23-9.07) x10^3/uL RBC 6.92 H (4.63-6.08) x10^6/uL Hgb 20.8 H (13.7-17.5) g/dL Hct 61.2 H (40.1-51.0) % MCV 88.4 (79.0-92.2) fL MCH 30.1 (25.7-32.2) pg MCHC 34.0 (32.3-36.5) g/dL RDW 13.6 (11.6-14.4) % Plt Count 464 H (163-337) x10^3/uL MPV 9.8 (9.4-12.4) fL Gran % 82.4 H (34.0-67.9) % Immature Gran % (Auto) 0.4 (0.001-0.429) % Nucleat RBC Rel Count 0.0 (0.00-0.2) % Eos # (Auto) 0.01 L (0.04-0.54) x10^3/uL Immature Gran # (Auto) 0.06 H (0.001-0.031) x10^3u/L Absolute Lymphs (auto) 2.04 (1.32-3.57) x10^3/uL Absolute Monos (auto) 0.82 (0.30-0.82) x10^3/uL Absolute Nucleated RBC 0.00 (0.00-0.012) x10^3u/L Lymphocytes % 12.0 L (21.8-53.1) % Monocytes % 4.8 L (5.3-12.2) % Eosinophils % 0.1 L (0.8-7.0) % Basophils % 0.3 (0.2-1.2) % Absolute Granulocytes 14.08 H (1.78-5.38) x10^3/uL Basophils # 0.05 (0.01-0.08) x10^3/uL Sodium 139 (135-145) mmol/L Potassium 4.4 (3.5-5.1) mmol/L Chloride 97 L (98-107) mmol/L Carbon Dioxide 26 (22-30) mmol/L Anion Gap 19.5 H (5-15) MEQ/L BUN 20 (9-20) mg/dL Creatinine 1.38 H (0.66-1.25) mg/dL Estimated GFR 58.9 ML/MIN Glucose 177 H (74-106) mg/dL Calcium 10.0 (8.4-10.2) mg/dL Total Bilirubin 1.20 (0.2-1.3) mg/dL AST 28 (17-59) U/L ALT 32 (0-50) U/L Alkaline Phosphatase 85 (38-126) U/L Serum Total Protein 8.5 H (6.3-8.2) g/dL Albumin 5.2 H (3.5-5.0) g/dL Lipase 127 (23-300) U/L Urine Color Dark Yellow (Yellow) Urine Appearance Clear (Clear) Urine pH 5.5 (4.6-8.0) Ur Specific [place] >=1.030 A (1.005-1.030) Urine Protein 30 (Negative) Urine Glucose (UA) Negative (Negative) mg/dL Urine Ketones Trace A (Negative) Urine Blood Negative (Negative) Urine Nitrite Negative (Negative) Urine Bilirubin Small A (Negative) Urine Urobilinogen 1.0 A (0.2) mg/dL Ur Leukocyte Esterase Trace A (Negative) U Hyaline Cast (Auto) 11-20 (0-2) /LPF Urine Microscopic RBC 0-2 (0-5) /HPF Urine Microscopic WBC 0-2 (0-5) /HPF Ur Epithelial Cells None Seen (None Seen) /HPF Urine Bacteria None Seen (None Seen) /HPF Urine Culture Reflexed YES (NO) - Progress Progress: pain not gone completely Progress Note: 12/24/23 16:02 CT abd/pelvis w/ showed 1. Moderate ascites. 2. Diffuse small bowel wall thickening with engorged mesenteric vessels, suggesting an acute inflammatory process, the differential includes inflammatory bowel disease like, Crohn's disease, and other infections, would recommend further assessment and clinical correlation. 3. Non-complicated colonic diverticulosis. 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 reports some improvement w/ fluids and zofran blood counts diffusely elevated likely 2/2 dehydration ORESTES w/ Cr 1.38, baseline around 0.8 possible abdominal infection - will start cipro/flagyl to cover, plan to admit for obs for further w/u of cirrhosis and further IV fluids/abx 12/24/23 16:11 discussed w/ Dr Irwin admission for obs - she accepts Will see patient in: hospital (observation) Counseled pt/family regarding: lab results, diagnosis, need for follow-up, rad results Medical Desision Making - Discussion of managment Care discussed with:: hospitalist Reviewed:: Test results, Need for additional workup Agreed on:: place in obs Will see patient: in hospital - Diagnostic Testing Diagnostic test were ordered, analyzed, and reviewed by me: Yes Radiological Interpretation: Reviewed by me, Teleradiologist Report - Risk of complications The pt has a high risk of morbidity or mortality based on: Decision regarding hospitilization or escalation of hosp level of care - Departure Departure Disposition: Observation Clinical Impression: Inflammation of small intestine, Dehydration Abdominal pain Qualifiers: Abdominal location: generalized Qualified Code(s): R10.84 - Generalized abdominal pain Ascites Qualifiers: Ascites type: other type Qualified Code(s): R18.8 - Other ascites Clinical Impression: (Ruled Out): 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
[2023-12-24] MEDS: Zofran 4 MG/2 ML VIAL IV ONE (12:04)
[2023-12-24] MEDS: Sodium Chloride 0.9% 1000 ML 1,000 ML IV STA (12:04)
[2023-12-24] MEDS ORDERED: Zofran 4 MG/2 ML VIAL ONE (12:04)
[2023-12-24] MEDS ORDERED: Sodium Chloride 0.9% 1000 ML 1,000 ML ONE ×3 (12:04→23:47)
[2023-12-24 12:10] LABS: Absolute Neutrophil Ct (ANC) 14.08 x10^3/uL (1.78-5.38); BASOPHIL % 0.3 % (0.2-1.2); Basophil (Absolute #) 0.05 x10^3/uL (0.01-0.08); Eosinophil % 0.1 % (0.8-7.0); Eosinophil (Absolute #) 0.01 x10^3/uL (0.04-0.54); Hematocrit 61.2 % (40.1-51.0); Hemoglobin 20.8 g/dL (13.7-17.5); IMMATURE GRAN # 0.06 x10^3u/L (0.001-0.031); IMMATURE GRAN % 0.4 % (0.001-0.429); Lymphocyte (Absolute #) 2.04 x10^3/uL (1.32-3.57); Mean Cell Volume 88.4 fL (79.0-92.2); Mean Corpuscular Hemoglobin 30.1 pg (25.7-32.2); Mean Platelet Volume 9.8 fL (9.4-12.4); Monocyte (Absolute #) 0.82 x10^3/uL (0.30-0.82); Monocytes % 4.8 % (5.3-12.2); Neutrophil % 82.4 % (34.0-67.9); Platelet Count 464 x10^3/uL (163-337); Red Blood Count 6.92 x10^6/uL (4.63-6.08); Red Cell Distribution Width 13.6 % (11.6-14.4); White Blood Count 17.1 x10^3/uL (4.23-9.07)
[2023-12-24 12:22] LABS: ADD URINE CULTURE? YES (NO); Appearance Clear (Clear); Bacteria None Seen /HPF (None Seen); Bilirubin Small (Negative); Blood Negative (Negative); Epithelial Cells None Seen /HPF (None Seen); Glucose, Urine Negative (Negative); Ketones Trace (Negative); Leukocyte Esterase Trace (Negative); Nitrite Negative (Negative); Ph 5.5 (4.6-8.0); Protein,Urine Dip 30 (Negative); RBC 0-2 /HPF (0-5); Specific Gravity >=1.030 (1.005-1.030); WBC 0-2 /HPF (0-5)
[2023-12-24 12:25] LABS: ALBUMIN 5.2 g/dL (3.5-5.0); ANION GAP 19.5 MEQ/L (5-15); BILIRUBIN,TOTAL 1.2 mg/dL (0.2-1.3); Creatinine 1 1.38 mg/dL (0.66-1.25); EST GLOMERULAR FILTRATION RATE 58.9 ML/MIN; Potassium 4.4 mmol/L (3.5-5.1); Total Protein 8.5 g/dL (6.3-8.2)
--- NOTE | 2023-12-24 15:02 | XRAY ---
CLINICAL HISTORY: RUQ pain, constipation COMPARISON: None. TECHNIQUE: Contrast-enhanced CT of the abdomen and pelvis was performed, with the following protocol: axial images with, and reconstructed coronal and sagittal images. Intravenous contrast (80 cc Isovue 370mg) was administered. One of the following dose reduction techniques was utilized for this exam: Automated exposure control, adjustment of the mA and/or kV according to patient size, and use of iterative reconstruction. DLP: 1336.33 mGy-cm. FINDINGS: Abdomen: Moderate ascites noted at subhepatic region, pelvis and para colic gutter. Bowel: The visualized small bowel loops show smooth long segment of wall thickening involving the proximal ileum loops, with prominent vasa recta, and no proximal bowel dilatation The descending and sigmoid colon show multiple diverticula no evidence of diverticulitis. No evidence of bowel obstruction. Liver: Normal in size, shape, and density. No focal lesions, cysts, or masses were identified. Hepatic vasculature and biliary ducts are unremarkable. Gallbladder and Biliary System: The gallbladder is normal in size and shape. No wall thickening, pericholecystic fluid, or gallstones were identified. The common bile duct is normal in caliber without dilation. Pancreas: Pancreatic head, body, and tail are visualized and appear normal in size and density. No pancreatic masses or calcifications were noted. The pancreatic duct is not dilated. Spleen: Normal in size, shape, and density. No splenic lesions or masses were identified. Kidneys and Adrenal Glands: Both kidneys are normal in size, shape, and position. Cortical thickness is within normal limits. No renal calculi or hydronephrosis. Adrenal glands are unremarkable with no evidence of masses or hyperplasia. Pelvis: Urinary Bladder: Normal in contour and wall thickness. No intraluminal lesions identified. Prostate: Normal in size and contour. No focal lesions or masses identified. Seminal Vesicles: Normal in size and appearance. No abnormalities noted. No lymphadenopathy was noted. Bones and Soft Tissues: Pelvic bones and soft tissues are unremarkable. No fractures or abnormal masses were identified. Lung bases show scattered atelectatic bands with calcified right pulmonary nodule. IMPRESSION: 1. Moderate ascites. 2. Diffuse small bowel wall thickening with engorged mesenteric vessels, suggesting an acute inflammatory process, the differential includes inflammatory bowel disease like, Crohn's disease, and other infections, would recommend further assessment and clinical correlation. 3. Non-complicated colonic diverticulosis. 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 Electronically Signed by: Pro Araya MD. (12/24/2023 14:58:33 EDT)
[2023-12-24] MEDS ORDERED: FLAGYL 500 MG IVPB 500 MG/100 ML BAG IV ONE (16:04)
[2023-12-24] MEDS: FLAGYL 500 MG IVPB 500 MG/100 ML BAG IV STA (16:07)
[2023-12-24] MEDS: Sodium Chloride 0.9% 1000 ML 1,000 ML IV SCH ×2 (16:07→23:48)
[2023-12-24] MEDS ORDERED: Levofloxacin 500MG/100ML D5W 500 MG/100 ML BAG IV ONE (17:11)
[2023-12-24] MEDS: Levofloxacin 500MG/100ML D5W 500 MG/100 ML BAG IV SCH (17:12)
[2023-12-24] MEDS ORDERED: NORVASC 5 MG ONE (21:38)
[2023-12-24] MEDS: NORVASC 5 MG PO ONE (21:39)
[2023-12-24] MEDS ORDERED: Cozaar 50 MG ONE (21:46)
[2023-12-24] MEDS: Cozaar 50 MG PO SCH (21:48)
[2023-12-25 00:07] VITALS: RESP 18; O2SAT 94
[2023-12-25 01:30] VITALS: BP 103/63; PULSE 76
== END 2023-12-25 01:40 | disposition short-term general hospital (02) ==
LOC: ED 11:34
DX: K52.9 Noninfective gastroenteritis and colitis, unspecified (principal); E86.0 Dehydration; R10.84 Generalized abdominal pain; R18.8 Other ascites; R11.0 Nausea; E78.5 Hyperlipidemia, unspecified; I10 Essential (primary) hypertension; E11.9 Type 2 diabetes mellitus without complications; Z79.899 Other long term (current) drug therapy
CPT/HCPCS: 36000; 36415; 74177; 80053; 81001; 83690; 85025; 87040; 87086; 96374; 99285; J1956; J2405; A9270-GY

== ENCOUNTER 2024-02-02 18:18 | Emergency (ER) | payer BC ==
[2024-02-02 18:37] VITALS: TEMP 97.7
--- NOTE | 2024-02-02 19:02 | ERPHSYRPT ---
- History of Present Illness Time Seen by Provider: 02/02/24 18:28 Historian: patient, family Exam Limitations: no limitations Patient Subjective Stated Complaint: PT states "My stomach is hurting again. I had an infection in my intestines a couple weeks ago and took all the antibiotics and now I hurt really bad again." Triage Nursing Assessment: PT presented alert and oriented X 3, skin pwd. Pt ambulates with an upright steady gait, able to speak in clear full sentences. Pt abdomen slightly firm, extremely tender in all quadrants. Physician History: 58-year-old male with history of hypertension, hyperlipidemia presented in the ER with diffuse abdominal pain worsening since morning, moderate to severe sharp more around periumbilical and right side. Aggravated with palpation movements. No significant relieving factor. Reports mild associated nausea but no vomiting. Denies any diarrhea or constipation. Reports having similar symptoms in the past where he was evaluated at [facility] and is scheduled to have outpatient EGD and colonoscopy done. Denies any fever or chills. Allergies/Adverse Reactions: cephalexin [From Keflex] Adverse Reaction (Intermediate, Verified 12/24/23 11:41) Hives Home Medications: Rosuvastatin Calcium [Crestor] 10 mg PO DAILY 04/06/19 [History] Losartan Potassium 50 mg [Cozaar 50 MG] 50 mg PO BID 06/03/23 [History] Amlodipine Besylate 1 tab PO BID 12/24/23 [History] Escitalopram Oxalate 10 mg PO DAILY 02/02/24 [History] Metformin HCl 500 mg [Glucophage 500 MG] 500 mg PO DAILY 02/02/24 [History] Hx Tetanus, Diphtheria Vaccination/Date Given: Yes Hx Influenza Vaccination/Date Given: No Hx Pneumococcal Vaccination/Date Given: No Immunizations Up to Date: No Travel Risk - International Travel Have you traveled outside of the country in past 3 weeks: No - Emerging Infectious Disease Are you exhibiting symptoms associated with any current EIDs: No - Review of Systems Constitutional: No Symptoms Ears, Nose, & Throat: No Symptoms Respiratory: No Symptoms Cardiac: No Symptoms Abdominal/Gastrointestinal: Abdominal Pain, Nausea Genitourinary Symptoms: No Symptoms Musculoskeletal: No Symptoms Skin: No Symptoms Neurological: No Symptoms Hematologic/Lymphatic: No Symptoms Immunological/Allergic: No Symptoms - Past Medical History Pertinent Past Medical History: Yes Neurological History: No Pertinent History ENT History: No Pertinent History Cardiac History: High Cholesterol, Hypertension Respiratory History: No Pertinent History Endocrine Medical History: Diabetes Type II Musculoskeletal History: No Pertinent History GI Medical History: No Pertinent History History: No Pertinent History Psycho-Social History: No Pertinent History Male Reproductive Disorders: No Pertinent History - Past Surgical History Past Surgical History: Yes Neuro Surgical History: No Pertinent History Cardiac: No Pertinent History Respiratory: No Pertinent History Gastrointestinal: Hernia Repair Genitourinary: No Pertinent History Musculoskeletal: Orthopedic Surgery Male Surgical History: No Pertinent History Other Surgical History: hernia 2012, Fx ankle w/pinning 2004 Significant Family History: no pertinent family hx - Social History Smoking Status: Never smoker Exposure to second hand smoke: No Drug Use: none Patient Lives Alone: No - Social Determinants of Health Will the patient participate in the screening: Yes Do you worry about a steady place to live?: No Do you have any problems with any of the following?: No known problems In the past 12 months,have you had to go without utilities?: No Transportation Issues: No Has anyone in your support network made you feel unsafe?: No Have you or anyone in your house had to go without enough: No - Nursing Vital Signs Nursing Vital Signs: Initial Vital Signs Temperature 97.7 F 02/02/24 18:28 Pulse Rate 91 H 02/02/24 18:28 Respiratory Rate 22 02/02/24 18:28 Blood Pressure 115/94 02/02/24 18:28 O2 Sat by Pulse Oximetry 96 02/02/24 18:28 Pain Scale Pain Intensity 5 - Physical Exam General Appearance: no apparent distress Eye Exam: PERRL/EOMI Ears, Nose, Throat Exam: normal ENT inspection Neck Exam: normal inspection, full range of motion Respiratory Exam: normal breath sounds, lungs clear Cardiovascular Exam: regular rate/rhythm, normal heart sounds Gastrointestinal/Abdomen Exam: tenderness, guarding (Diffusely more on the right side), No normal bowel sounds Back Exam: normal inspection, normal range of motion Extremity Exam: normal inspection, normal range of motion Neurologic Exam: alert, 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, cooperative, 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-XII 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 as tested Skin Exam: normal color SpO2 Interpretation: normal SpO2: 96 O2 Delivery: Room Air Ordered Tests: Active Orders 24 hr Category Date Time Status IV Insertion STAT Care 02/02/24 18:58 Active ABDOMEN AND PELVIS W/0 CONTRAS [CT] Stat Exams 02/02/24 18:59 Taken CBC W DIFF Stat Lab 02/02/24 18:45 Completed CMP Stat Lab 02/02/24 18:45 Completed LIPASE Stat Lab 02/02/24 18:45 Completed Lactic Acid Stat Lab 02/02/24 19:00 Completed UA W/RFX UR CULTURE Stat Lab 02/02/24 19:06 Completed Medication Summary Discontinued Medications Generic Name Dose Route Start Last Admin Trade Name Molly PRN Reason Stop Dose Admin Sodium Chloride 1,000 mls @ 999 mls/hr 02/02/24 18:58 02/02/24 20:25 Sodium Chloride 0.9% 1000 Ml IV 02/02/24 19:58 Infused .Q1H1M STA Infusion Sodium Chloride Confirm 02/02/24 19:08 Sodium Chloride 0.9% 1000 Ml Administered 02/02/24 19:09 Dose 1,000 mls @ ud .ROUTE .STK-MED ONE Ketorolac Tromethamine 30 mg 02/02/24 19:28 02/02/24 19:32 Ketorolac Tromethamine 30 Mg/Ml Inj IV 02/02/24 19:29 30 mg STAT ONE Administration Ketorolac Tromethamine Confirm 02/02/24 19:29 Ketorolac Tromethamine 30 Mg/Ml Inj Administered 02/02/24 19:30 Dose 30 mg .ROUTE .STK-MED ONE Ondansetron HCl 4 mg 02/02/24 18:58 02/02/24 19:24 Ondansetron Hcl 4 Mg/2 Ml Vial IV 02/02/24 18:59 4 mg STAT ONE Administration Ondansetron HCl Confirm 02/02/24 19:08 Ondansetron Hcl 4 Mg/2 Ml Vial Administered 02/02/24 19:09 Dose 4 mg .ROUTE .STK-MED ONE Lab/Rad Data: Laboratory Result Diagrams 02/02/24 18:45 02/02/24 18:45 Laboratory Results 02/02/24 02/02/24 02/02/24 Range/Units 19:06 19:00 18:45 WBC (4.23-9.07) x10^3/uL RBC (4.63-6.08) x10^6/uL Hgb (13.7-17.5) g/dL Hct (40.1-51.0) % MCV (79.0-92.2) fL MCH (25.7-32.2) pg MCHC (32.3-36.5) g/dL RDW (11.6-14.4) % Plt Count (163-337) x10^3/uL MPV (9.4-12.4) fL Gran % (34.0-67.9) % Immature Gran % (Auto) (0.001-0.429) % Nucleat RBC Rel Count (0.00-0.2) % Eos # (Auto) (0.04-0.54) x10^3/uL Immature Gran # (Auto) (0.001-0.031) x10^3u/L Absolute Lymphs (auto) (1.32-3.57) x10^3/uL Absolute Monos (auto) (0.30-0.82) x10^3/uL Absolute Nucleated RBC (0.00-0.012) x10^3u/L Lymphocytes % (21.8-53.1) % Monocytes % (5.3-12.2) % Eosinophils % (0.8-7.0) % Basophils % (0.2-1.2) % Absolute Granulocytes (1.78-5.38) x10^3/uL Basophils # (0.01-0.08) x10^3/uL Sodium 134 L (135-145) mmol/L Potassium 4.3 (3.5-5.1) mmol/L Chloride 101 (98-107) mmol/L Carbon Dioxide 22 (22-30) mmol/L Anion Gap 15.0 (5-15) MEQ/L BUN 13 (9-20) mg/dL Creatinine 0.91 (0.66-1.25) mg/dL Estimated GFR 97.1 ML/MIN Glucose 131 H (74-106) mg/dL Lactic Acid 1.2 (0.4-2.0) Calcium 9.4 (8.4-10.2) mg/dL Total Bilirubin 1.10 (0.2-1.3) mg/dL AST 26 (17-59) U/L ALT 28 (0-50) U/L Alkaline Phosphatase 64 (38-126) U/L Serum Total Protein 7.4 (6.3-8.2) g/dL Albumin 4.5 (3.5-5.0) g/dL Lipase 101 (23-300) U/L Urine Color Dark Yellow (Yellow) Urine Appearance Clear (Clear) Urine pH 5.5 (4.6-8.0) Ur Specific [place] 1.020 (1.005-1.030) Urine Protein Trace A (Negative) Urine Glucose (UA) Negative (Negative) mg/dL Urine Ketones Negative (Negative) Urine Blood Negative (Negative) Urine Nitrite Negative (Negative) Urine Bilirubin Negative (Negative) Urine Urobilinogen 1.0 A (0.2) mg/dL Ur Leukocyte Esterase Negative (Negative) U Hyaline Cast (Auto) NONE SEEN (0-2) /LPF Urine Microscopic RBC 0-2 (0-5) /HPF Urine Microscopic WBC 0-2 (0-5) /HPF Ur Epithelial Cells None Seen (None Seen) /HPF Urine Bacteria None Seen (None Seen) /HPF Urine Culture Reflexed NO (NO) 02/02/24 Range/Units 18:45 WBC 14.8 H (4.23-9.07) x10^3/uL RBC 6.24 H (4.63-6.08) x10^6/uL Hgb 19.0 H (13.7-17.5) g/dL Hct 53.9 H (40.1-51.0) % MCV 86.4 (79.0-92.2) fL MCH 30.4 (25.7-32.2) pg MCHC 35.3 (32.3-36.5) g/dL RDW 13.0 (11.6-14.4) % Plt Count 370 H (163-337) x10^3/uL MPV 9.7 (9.4-12.4) fL Gran % 76.2 H (34.0-67.9) % Immature Gran % (Auto) 0.3 (0.001-0.429) % Nucleat RBC Rel Count 0.0 (0.00-0.2) % Eos # (Auto) 0.03 L (0.04-0.54) x10^3/uL Immature Gran # (Auto) 0.05 H (0.001-0.031) x10^3u/L Absolute Lymphs (auto) 2.48 (1.32-3.57) x10^3/uL Absolute Monos (auto) 0.91 H (0.30-0.82) x10^3/uL Absolute Nucleated RBC 0.00 (0.00-0.012) x10^3u/L Lymphocytes % 16.8 L (21.8-53.1) % Monocytes % 6.2 (5.3-12.2) % Eosinophils % 0.2 L (0.8-7.0) % Basophils % 0.3 (0.2-1.2) % Absolute Granulocytes 11.27 H (1.78-5.38) x10^3/uL Basophils # 0.05 (0.01-0.08) x10^3/uL Sodium (135-145) mmol/L Potassium (3.5-5.1) mmol/L Chloride (98-107) mmol/L Carbon Dioxide (22-30) mmol/L Anion Gap (5-15) MEQ/L BUN (9-20) mg/dL Creatinine (0.66-1.25) mg/dL Estimated GFR ML/MIN Glucose (74-106) mg/dL Lactic Acid (0.4-2.0) Calcium (8.4-10.2) mg/dL Total Bilirubin (0.2-1.3) mg/dL AST (17-59) U/L ALT (0-50) U/L Alkaline Phosphatase (38-126) U/L Serum Total Protein (6.3-8.2) g/dL Albumin (3.5-5.0) g/dL Lipase (23-300) U/L Urine Color (Yellow) Urine Appearance (Clear) Urine pH (4.6-8.0) Ur Specific [place] (1.005-1.030) Urine Protein (Negative) Urine Glucose (UA) (Negative) mg/dL Urine Ketones (Negative) Urine Blood (Negative) Urine Nitrite (Negative) Urine Bilirubin (Negative) Urine Urobilinogen (0.2) mg/dL Ur Leukocyte Esterase (Negative) U Hyaline Cast (Auto) (0-2) /LPF Urine Microscopic RBC (0-5) /HPF Urine Microscopic WBC (0-5) /HPF Ur Epithelial Cells (None Seen) /HPF Urine Bacteria (None Seen) /HPF Urine Culture Reflexed (NO) - Progress Progress: unchanged, re-examined Progress Note: 02/02/24 21:08 58-year-old is evaluated in the ER for diffuse abdominal pain with nausea but no vomiting or diarrhea. Patient had similar symptoms in the recent past where he was seen at [facility] and was recommended to have EGD colonoscopy which patient is scheduled to have next month. Patient denies any fever or chills. Is given fluid bolus, on reevaluation is feeling better. Offered pain medication which she declined. Workup showed white count of 14, fairly unremarkable chemistries and no UTI. CT abdomen pelvis per preliminary report showed small intestine 9 and sigmoid diffuse thickening including ileocecal area suggesting Crohn's. Iona navarro had a similar findings in the previous CAT scan as well. I have offered him steroids and also antibiotics but he does not want to have anything, would like to go home. He is advised to take Tylenol ibuprofen as needed, discussed signs symptoms of worsening needing return to ER which she seems understanding. Stable for discharge. Counseled pt/family regarding: lab results, diagnosis, need for follow-up, rad results Medical Desision Making - Independent Historian Additional History obtained from: Spouse - External Record(s) Reviewed Records reviewed as a part of evaluation & management: Inpatient, Discharge Summary - Diagnostic Testing Diagnostic test were ordered, analyzed, and reviewed by me: Yes Radiological Interpretation: Reviewed by me, Teleradiologist Report - Risk of complications The pt has a mod risk of morbidity or mortality based on: Need for prescription drug management - Departure Departure Disposition: Home Clinical Impression: Inflammation of small intestine, Abdominal pain Condition: Stable Critical Care Time: No Referrals: REMBERTO THOMAS NP [Primary Care Provider] - Follow up with PCP 1 day KIMANI LIU [ACTIVE STAFF] - Follow up/PCP as directed (Call for appointment) Instructions: Severe Abdominal Pain, Adult (DC), Inflammatory Bowel Disease (DC) Additional Instructions: Keep appointment for EGD/colonoscopy. Take Tylenol/ibuprofen as needed. Drink plenty of fluids, take soft diet. Return to ER for intractable abdominal pain/vomiting/fever chills etc.
[2024-02-02] MEDS ORDERED: Sodium Chloride 0.9% 1000 ML 1,000 ML ONE (19:08)
[2024-02-02] MEDS ORDERED: Zofran 4 MG/2 ML VIAL ONE (19:08)
[2024-02-02 19:10] LABS: Absolute Neutrophil Ct (ANC) 11.27 x10^3/uL (1.78-5.38); BASOPHIL % 0.3 % (0.2-1.2); Basophil (Absolute #) 0.05 x10^3/uL (0.01-0.08); Eosinophil % 0.2 % (0.8-7.0); Eosinophil (Absolute #) 0.03 x10^3/uL (0.04-0.54); Hematocrit 53.9 % (40.1-51.0); IMMATURE GRAN # 0.05 x10^3u/L (0.001-0.031); IMMATURE GRAN % 0.3 % (0.001-0.429); Lymphocyte (Absolute #) 2.48 x10^3/uL (1.32-3.57); Lymphocytes % 16.8 % (21.8-53.1); Mean Cell Volume 86.4 fL (79.0-92.2); Mean Corpuscular Hemoglobin 30.4 pg (25.7-32.2); Mean Corpuscular Hgb Concent. 35.3 g/dL (32.3-36.5); Mean Platelet Volume 9.7 fL (9.4-12.4); Monocyte (Absolute #) 0.91 x10^3/uL (0.30-0.82); Monocytes % 6.2 % (5.3-12.2); Neutrophil % 76.2 % (34.0-67.9); Platelet Count 370 x10^3/uL (163-337); Red Blood Count 6.24 x10^6/uL (4.63-6.08); White Blood Count 14.8 x10^3/uL (4.23-9.07)
[2024-02-02 19:15] LABS: Appearance Clear (Clear); Bacteria None Seen /HPF (None Seen); Bilirubin Negative (Negative); Blood Negative (Negative); Epithelial Cells None Seen /HPF (None Seen); Glucose, Urine Negative (Negative); Hyaline Casts NONE SEEN /LPF (0-2); Ketones Negative (Negative); Leukocyte Esterase Negative (Negative); Nitrite Negative (Negative); Ph 5.5 (4.6-8.0); Protein,Urine Dip Trace (Negative); RBC 0-2 /HPF (0-5); WBC 0-2 /HPF (0-5)
[2024-02-02 19:17] LABS: ADD URINE CULTURE? NO (NO)
[2024-02-02 19:23] LABS: ALBUMIN 4.5 g/dL (3.5-5.0); BILIRUBIN,TOTAL 1.1 mg/dL (0.2-1.3); Calcium 9.4 mg/dL (8.4-10.2); Creatinine 1 0.91 mg/dL (0.66-1.25); EST GLOMERULAR FILTRATION RATE 97.1 ML/MIN; Potassium 4.3 mmol/L (3.5-5.1); Total Protein 7.4 g/dL (6.3-8.2)
[2024-02-02] MEDS: Zofran 4 MG/2 ML VIAL IV ONE (19:24)
[2024-02-02] MEDS: Sodium Chloride 0.9% 1000 ML 1,000 ML IV STA (19:24)
[2024-02-02] MEDS ORDERED: TORAdol 30 mg Injection ONE (19:29)
[2024-02-02] MEDS: TORAdol 30 mg Injection IV ONE (19:32)
[2024-02-02 21:08] VITALS: BP 108/77; PULSE 67; RESP 24
[2024-02-02 21:12] VITALS: O2SAT 96
--- NOTE | 2024-02-03 09:02 | XRAY ---
Indication: Periumbilical pain. Multiple contiguous axial images obtained through the abdomen and pelvis without contrast. Comparison: December 24, 2023 Lung bases again demonstrate scattered subsegmental atelectasis/scarring bilaterally and right lower lobe calcified granuloma. No infiltrate or effusion. Heart not enlarged. New small hiatal hernia. Noncontrasted stomach and bowel loops appear nonobstructed. Small bowel loops again demonstrates abnormal circumferential bowel wall thickening, greatest involving ileum including ileocecal junction. Sigmoid again demonstrates abnormal circumferential wall thickening. Findings would favor Crohn's disease. Again small perihepatic/perisplenic and tiny pelvic free fluid. No walled off fluid collection or free air. Again scattered descending and sigmoid diverticulosis. Remaining liver, gallbladder, pancreas, spleen, adrenal glands, kidneys, ureters, and bladder are unremarkable for noncontrast exam. There remains minimal scattered aortoiliac calcifications without AAA. Osseous structures intact again with mild/moderate degenerative changes throughout thoracolumbar spine, minimal levoscoliosis centered at L2 and mild degenerative changes both hips. Stable small bilateral fatty inguinal hernias. No ventral/umbilical hernias. Impression: 1. Again abnormal circumferential wall thickening involving small bowel loops, ileocecal junction, and sigmoid favoring Crohn's disease. 2. Again small abdominal and tiny pelvic free fluid presumed reactive. No walled off fluid collection/free air. 3. Chronic findings including bibasilar atelectasis/scarring, hiatal hernia, colonic diverticulosis, arteriosclerotic disease, bilateral fatty inguinal hernias, and chronic bony findings.
== END 2024-02-02 21:29 | disposition home or self-care (01) ==
LOC: ED 18:18
DX: K52.9 Noninfective gastroenteritis and colitis, unspecified (principal); R10.9 Unspecified abdominal pain; I10 Essential (primary) hypertension; E78.5 Hyperlipidemia, unspecified; E11.9 Type 2 diabetes mellitus without complications
CPT/HCPCS: 36000; 36415; 74176; 80053; 81001; 83605; 83690; 85025; 96360; 96374; 96375; 99284; J1885; J2405